=== PATIENT | female | born 1955 | race Asian ===

== ENCOUNTER 2019-03-12 10:42 | Inpatient (IN) | payer MEDICAID, MEDICARE, OTHER ==
[~2019-03-12] VITALS: Ht 149.9 cm; Wt 88.9 kg
[2019-03-12] MEDS ORDERED: HYDRALAZINE HCL25 M2 PO (10:57)
[2019-03-12] MEDS ORDERED: AMLODIPINE BESY10 MG ORAL (10:57)
[2019-03-12] MEDS ORDERED: LISINOPRIL5 MG ORAL (10:57)
[2019-03-12 11:33] VITALS: BP 137/71
[2019-03-12 11:40] LABS: BASOPHILS % (AUTO) 0.4 % (0.0-2.0); EOSINOPHILS % (AUTO) 0.2 % (0.0-3.0); HEMOGLOBIN 14.6 G/DL (12.0-16.0); LYMPHOCYTES % (AUTO) 32.7 % (20.0-45.0); MEAN CORPUSCULAR VOLUME 89 FL (80-99); MONOCYTES % (AUTO) 4.8 % (1.0-10.0); PLATELET COUNT 182 K/UL (150-450); RED BLOOD COUNT 4.96 M/UL (4.20-5.40); RED CELL DISTRIBUTION WIDTH 12.1 % (11.6-14.8); WHITE BLOOD COUNT 9.1 K/UL (4.8-10.8)
[2019-03-12 11:41] LABS: APPEARANCE,URINE CLEAR; BILIRUBIN, URINE NEGATIVE (NEGATIVE); COLOR,URINE PALE YELLOW; GLUCOSE, URINE (UA) NEGATIVE (NEGATIVE); KETONES,URINE NEGATIVE (NEGATIVE); LEUKOCYTE ESTERASE ,URINE NEGATIVE (NEGATIVE); NITRITE,URINE NEGATIVE (NEGATIVE); PH,URINE 5 (4.5-8.0); PROTEIN,URINE NEGATIVE (NEGATIVE); UROBILINOGEN,URINE NORMAL MG/DL (0.0-1.0)
[2019-03-12 11:50] LABS: ANION GAP 8 mmol/L (5-15); BLOOD UREA NITROGEN 21 mg/dL (7-18); CALCIUM 9.3 MG/DL (8.5-10.1); CARBON DIOXIDE 27 MMOL/L (21-32); CHLORIDE 108 MMOL/L (98-107); POTASSIUM 4.6 MMOL/L (3.5-5.1); SODIUM 143 MMOL/L (136-145)
--- NOTE | 2019-03-12 11:50 | NUR ---
ED Nurse Note: pt came in with childcare director from boarding care pt had 3 falls today . feeling weak and dizzy. labs sent ivf up infusing
--- NOTE | 2019-03-12 11:52 | Diagnostic Imaging Report ---
Indication: Shortness of breath Technique: XRAY Chest 1v Comparison: None Findings: Limited exam related to underpenetration, likely secondary to body habitus. Heart size within the upper limits for normal. Mediastinal contours are sharp. There are atherosclerotic ulcer calcifications.. There is no focal consolidation, pneumothorax or pleural effusion. Osseous structures demonstrate no acute abnormality. Impression: No radiographic evidence of acute cardiopulmonary disease.
[2019-03-12 12:03] LABS: ALANINE AMINOTRANSFERASE 17 U/L (12-78); ALBUMIN 3.7 G/DL (3.4-5.0); ALBUMIN/GLOBULIN RATIO 0.9 (1.0-2.7); ALKALINE PHOSPHATASE 74 U/L (46-116); ASPARTATE AMINO TRANSFERASE 19 U/L (15-37); BILIRUBIN,TOTAL 0.4 MG/DL (0.2-1.0); CREATINE KINASE 233 U/L (26-308); PHOSPHORUS 2.7 MG/DL (2.5-4.9)
[2019-03-12 14:00] VITALS: BP 125/87
--- NOTE | 2019-03-12 14:01 | NUR ---
ED Nurse Note: pt given sandwich and juice ok'd to feed pt per ermd. Belongings list done
--- NOTE | 2019-03-12 14:22 | Emergency Room Report ---
History of Present Illness General Chief Complaint: Generalized Weakness Source: Patient Present Illness HPI This patient [facility] a [id number]. She has a history of CVA. She is a hospice program more for her inability to ambulate and inability to perform activities of daily living. She does not have a terminal illness. She does have a history of CVA and hypertension. She had been complaining of leg pain over the past week. Over the past day, her legs have given out about 3 times. She did not actually fall or traumatize her head. She was being assisted by caregivers when these episodes occurred and they were able to hold her without any injury occurring. The patient herself complains of leg pain bilaterally. She denies chest pain or shortness of breath. She denies abdominal pain. She has no other complaints. Allergies: Coded Allergies: No Known Allergies (Unverified , 03/12/19) Patient History Past Medical History: see triage record, HTN, CVA/TIA Social History: Reports: smoking; Denies: alcohol use, drug use Reviewed Nursing Documentation: PMH: Agreed; PSxH: Agreed Nursing Documentation-PMH Past Medical History: No History, Except For Hx Hypertension: Yes Review of Systems All Other Systems: negative except mentioned in HPI Physical Exam Vital Signs Date Time Temp Pulse Resp B/P (MAP) Pulse Ox O2 Delivery O2 Flow Rate FiO2 03/12/19 10:54 80 24 155/87 96 Room Air 03/12/19 11:33 99.1 Sp02 EP Interpretation: reviewed, normal General Appearance: no apparent distress, alert, GCS 15, non-toxic, obese Head: normocephalic, atraumatic Eyes: bilateral eye normal inspection, bilateral eye PERRL ENT: hearing grossly normal, normal pharynx, no angioedema, normal voice Neck: full range of motion, supple/symm/no masses Respiratory: chest non-tender, lungs clear, normal breath sounds, no respiratory distress, no retraction, no accessory muscle use, speaking full sentences Cardiovascular #1: regular rate, rhythm, no edema Gastrointestinal: normal bowel sounds, non tender, soft, non-distended, no guarding, no rebound Rectal: deferred Musculoskeletal: normal range of motion, swelling - BLE edema, tender - TTP BLE Neurologic: alert, oriented x3, responsive, motor strength/tone normal, sensory intact, speech normal Psychiatric: judgement/insight normal, mood/affect normal, no suicidal/ homicidal ideation Skin: warm/dry, well hydrated, other - See RN skin exam Medical Decision Making Diagnostic Impression: Primary Impression: Elevated troponin Additional Impression: Generalized weakness ER Course This patient is found to have an indeterminate troponin. Her legs have been giving out. I am unsure of the etiology of this. She is morbidly obese and has been complaining of pain. Possibly she has osteoarthritis of the knees and is having pain and unable to tolerate the pain with her morbid obesity. She has no obvious focal neurologic deficits. I will admit this patient for further evaluation by cardiology. She is also pending venous ultrasounds of her lower extremities to rule out DVT. These studies will be followed up by the inpatient physician. The patient is admitted for further evaluation and treatment. Laboratory Tests Test 03/12/19 11:15 White Blood Count 9.1 K/UL (4.8-10.8) Red Blood Count 4.96 M/UL (4.20-5.40) Hemoglobin 14.6 G/DL (12.0-16.0) Hematocrit 44.0 % (37.0-47.0) Mean Corpuscular Volume 89 FL (80-99) Mean Corpuscular Hemoglobin 29.5 PG (27.0-31.0) Mean Corpuscular Hemoglobin Concent 33.2 G/DL (32.0-36.0) Red Cell Distribution Width 12.1 % (11.6-14.8) Platelet Count 182 K/UL (150-450) Mean Platelet Volume 9.3 FL (6.5-10.1) Neutrophils (%) (Auto) 62.0 % (45.0-75.0) Lymphocytes (%) (Auto) 32.7 % (20.0-45.0) Monocytes (%) (Auto) 4.8 % (1.0-10.0) Eosinophils (%) (Auto) 0.2 % (0.0-3.0) Basophils (%) (Auto) 0.4 % (0.0-2.0) Prothrombin Time 10.5 SEC (9.30-11.50) Prothrombin Time INR 1.0 (0.9-1.1) PTT 26 SEC (23-33) Urine Color Pale yellow Urine Appearance Clear Urine pH 5 (4.5-8.0) Urine Specific [place] 1.015 (1.005-1.035) Urine Protein Negative (NEGATIVE) Urine Glucose (UA) Negative (NEGATIVE) Urine Ketones Negative (NEGATIVE) Urine Blood Negative (NEGATIVE) Urine Nitrite Negative (NEGATIVE) Urine Bilirubin Negative (NEGATIVE) Urine Urobilinogen Normal MG/DL (0.0-1.0) Urine Leukocyte Esterase Negative (NEGATIVE) Sodium Level 143 MMOL/L (136-145) Potassium Level 4.6 MMOL/L (3.5-5.1) Chloride Level 108 MMOL/L (98-107) H Carbon Dioxide Level 27 MMOL/L (21-32) Anion Gap 8 mmol/L (5-15) Blood Urea Nitrogen 21 mg/dL (7-18) H Creatinine 1.0 MG/DL (0.55-1.30) Estimate Glomerular Filtration Rate 55.8 mL/min (>60) Glucose Level 82 MG/DL (74-106) Lactic Acid Level 1.20 mmol/L (0.4-2.0) Calcium Level 9.3 MG/DL (8.5-10.1) Phosphorus Level 2.7 MG/DL (2.5-4.9) Magnesium Level 1.8 MG/DL (1.8-2.4) Total Bilirubin 0.4 MG/DL (0.2-1.0) Aspartate Amino Transferase (AST) 19 U/L (15-37) Alanine Aminotransferase (ALT) 17 U/L (12-78) Alkaline Phosphatase 74 U/L (46-116) Total Creatine Kinase 233 U/L (26-308) Creatine Kinase MB 5.0 NG/ML (0.0-3.6) H Creatine Kinase MB Relative Index 2.1 Troponin I 0.088 ng/mL (0.000-0.056) Total Protein 7.6 G/DL (6.4-8.2) Albumin 3.7 G/DL (3.4-5.0) Globulin 3.9 g/dL Albumin/Globulin Ratio 0.9 (1.0-2.7) L EKG Diagnostic Results Rate: normal Rhythm: NSR ST Segments: no acute changes Rhythm Strip Diag. Results EP Interpretation: yes Rate: 70's Rhythm: NSR, no PVC's, no ectopy Chest X-Ray Diagnostic Results Chest X-Ray Diagnostic Results : Chest X-Ray Ordered: Yes # of Views/Limited/Complete: 1 View Indication: Other Interpretation: no consolidation, no effusion, no pneumothorax, no acute cardiopulmonary disease Impression: No acute disease Electronically Signed by: Marya Merida DO Last Vital Signs Date Time Temp Pulse Resp B/P (MAP) Pulse Ox O2 Delivery O2 Flow Rate FiO2 03/12/19 14:00 87 25 125/87 100 Room Air 03/12/19 11:33 99.1 Status: improved Disposition: ADMITTED INPATIENT Condition: Serious Referrals: NON PHYSICIAN (PCP) Marya Merida DO Mar 12, 2019 14:22
[2019-03-12] MEDS ORDERED: Ketorolac 30mg Inj IV PRN (15:15)
[2019-03-12] MEDS ORDERED: dilTIAZem HCl 25mg/5ml Inj IV PRN (15:15)
[2019-03-12] MEDS ORDERED: Miralax 17gm pkt ORAL PRN (15:15)
[2019-03-12] MEDS ORDERED: Nitroglycerin Subl 0.4mg tab SL PRN (15:15)
[2019-03-12] MEDS ORDERED: Albuterol/Ipratropium 3ml neb HHN PRN (15:15)
[2019-03-12] MEDS ORDERED: Morphine Sulfate 2mg/ml Inj(IV/IM USE ONLY) IVP PRN (15:15)
[2019-03-12] MEDS ORDERED: Enalaprilat 1.25mg/ml Inj IV PRN (15:15)
[2019-03-12 15:45] VITALS: BP 103/72
--- NOTE | 2019-03-12 15:45 | NUR ---
NURSE NOTES: Received report from MELISSA Reyna from ED. The patient transferred by amara from ED to [facility] safely. The patient denies of acute distress or shortness of breath. The patient's belongings checked with EMLISSA Reyna. The patient's bed is on lowest position, call light in reach, bed brake engaged, side rail x3 up, fall precaution initiated. Fall prevention education given and protocol initiated due to history of fall. Will continue plan of care. Addendum: 03/12/19 at 1623 by Toby Maciel RN quality assurance monitor applied to the patient without discomfort. Will continue to monitor.
[2019-03-12 16:00] VITALS: BP 128/72
--- NOTE | 2019-03-12 16:52 | History & Physical ---
History and Physical History & Physicial Dictated for Int Med-Dr Moran no. [id number]. Tj Mcghee MD Mar 12, 2019 16:52
[2019-03-12] MEDS: HydrALAZINE 25mg tab ORAL SCH (17:42)
--- NOTE | 2019-03-12 19:15 | NUR ---
NURSE NOTES: Received report from Leodan Zaragoza RN and Leodan Maciel RN. Pt is resting in the bed. No respiratory distress in RA. Pt was instructed to call help to use bedpan when she needed. Pt is A&O x3, and verbalized the understanding. Call light and side table are within reach. Bed in the lowest, bed alarm on, and breaks are engaged. Will follow plans of care.
--- NOTE | 2019-03-12 19:42 | NUR ---
HAND-OFF: Report given to MELISSA Baron. Endorsed plan of care.
--- NOTE | 2019-03-12 19:45 | History and Physical Report ---
DATE OF ADMISSION: 03/12/2019 CHIEF COMPLAINT: The patient is a 63-year-old female, who presents with a chief complaint of generalized weakness. HISTORY OF PRESENT ILLNESS: The patient is a resident of [facility]. The patient has had several episodes of her legs being weak over the past couple of days. The patient states this occurred approximately 3 times. The patient did not actually fall. The patient was assisted by caregivers. The patient presented to [facility] emergency room. The patient was admitted with bilateral lower extremity weakness to rule out acute cerebrovascular accident. REVIEW OF SYSTEMS: CONSTITUTIONAL: The patient denies weight loss or weight gain. The patient denies fevers or chills. HEENT: The patient denies ear or throat pain. The patient denies headache. CARDIOVASCULAR: The patient denies palpitations or chest pain. CHEST: The patient denies wheeze or shortness of breath. ABDOMEN: The patient denies nausea, vomiting, diarrhea, or constipation. GENITOURINARY: The patient denies dysuria or increased frequency of urination. NEUROMUSCULAR: The patient complains of bilateral leg weakness as above. The patient denies seizures or generalized weakness. PAST MEDICAL HISTORY: Significant for, 1. Hypertension. 2. Cerebrovascular disease, status post cerebrovascular accident. PAST SURGICAL HISTORY: The patient denies. CURRENT MEDICATIONS: 1. Amlodipine 10 mg one tablet p.o. daily. 2. Hydralazine 25 mg p.o. 3 times daily. 3. Lisinopril 10 mg p.o. daily. ALLERGIES: No known drug allergies. SOCIAL HISTORY: The patient lives in a [facility]. The patient is single. The patient denies tobacco or alcohol use. PHYSICAL EXAMINATION: VITAL SIGNS: Temperature 99.1, respirations 25, pulse 87, and blood pressure 125/87. GENERAL: The patient is a well-developed and well-nourished female in no apparent distress. HEENT: Eyes, pupils are equal and responsive to light and accommodation. Extraocular movements are intact. NECK: Supple without lymphadenopathy. CHEST: Lungs are clear to auscultation bilaterally without wheezes or rales. CARDIOVASCULAR: Regular rhythm and rate. S1 and S2 are normal without murmurs, rubs, or gallops. ABDOMEN: Soft, nontender, and nondistended. Positive bowel sounds. No evidence of hepatosplenomegaly. Currently, no rebound or guarding noted. EXTREMITIES: Negative for clubbing, cyanosis, or edema. RECTAL/GENITAL: Refused. NEUROLOGIC: Cranial nerves II through XII are grossly intact without focal deficits. LABORATORY STUDIES: WBC 9.1, hemoglobin 14.6, hematocrit 44.0, and platelets 182,000. Sodium 143, potassium 4.6, chloride 108, CO2 27, BUN 29, creatinine 1.0, and glucose 82. Troponin is slightly elevated at 0.088. Chest x-ray is reported as no acute disease. ASSESSMENT: This is a 63-year-old female. 1. Weakness in bilateral lower extremities. 2. Hypertension. TREATMENT: 1. Weakness of bilateral lower extremities mainly secondary to cerebrovascular disease. The patient has had cerebrovascular accident in the past. An MRI of the brain is pending. 2. Hypertension. Continue hydralazine, amlodipine, and lisinopril as above. 3. Elevated troponin. Cardiology consultation is obtained with Dr. David Montanez. Tj Mcghee M.D. DR: BERNARD JOB#: [id number] CC:
[2019-03-12 20:00] VITALS: BP 133/83
[2019-03-12] MEDS: Heparin 5000 units/ml inj SUBQ SCH (20:45)
--- NOTE | 2019-03-12 23:23 | NUR ---
NURSE NOTES: Pt was watching TV and fell to sleeping, arousable by voice stimuli. SR in the monitor. No distress noted. Will continue to monitor.
[2019-03-13] VITALS (7 sets, daily range): BP systolic 119–142; BP diastolic 57–78
[2019-03-13 06:28] LABS: HEMOGLOBIN 14.1 G/DL (12.0-16.0); MEAN CORPUSCULAR VOLUME 90 FL (80-99); PLATELET COUNT 148 K/UL (150-450); RED BLOOD COUNT 4.69 M/UL (4.20-5.40); RED CELL DISTRIBUTION WIDTH 12.5 % (11.6-14.8); WHITE BLOOD COUNT 4.6 K/UL (4.8-10.8)
[2019-03-13 06:42] LABS: CHOLESTEROL 149 MG/DL (< 200); HDL CHOLESTEROL 43 MG/DL (40-60); TRIGLYCERIDES 69 MG/DL (30-150)
[2019-03-13 06:46] LABS: INR 1.1 (0.9-1.1)
--- NOTE | 2019-03-13 07:20 | NUR ---
NURSE NOTES: I received the patient awake and resting in bed. Patient did not display any signs of distress or SOB. Bed in the lowest position and call light within reach.
--- NOTE | 2019-03-13 07:29 | NUR ---
HAND-OFF: Report given to Sandrine Berkowitz RN. Troponin is 0.094, trending up from 0.074. Called and left message to Dr. Montanez regarding it. Awaiting call back to the station. Addendum: 03/13/19 at 0731 by MORENO EASTMAN RN Dany is applied and working well.
--- NOTE | 2019-03-13 08:00 | NUR ---
CASE MANAGEMENT:REVIEW 63 YR OLD FEMALE BIBA FROM [facility] CC: GENERALIZED WEAKNESS. ABDOMINAL PAIN SI: ELEVATED TROPONIN 99.1 80 24 155/87 96% ON RA CK MB+5.0 TROPONIN(+) 0.088 AND 0.074 IS: 1L NS BOLUS BLOOD CX CXR : TO TELEMETRY IS: ASA PO QD NORVASC PO QD HEPARIN SQ Q12 HYDRALAZINE PO TID INTERQUAL CRITERIA MET
[2019-03-13] MEDS: HydrALAZINE 25mg tab ORAL SCH ×3 (08:20→18:57)
[2019-03-13] MEDS: Heparin 5000 units/ml inj SUBQ SCH ×2 (08:33→21:00)
[2019-03-13] MEDS ORDERED: Aspirin Baby 81mg ORAL SCH (09:00)
--- NOTE | 2019-03-13 10:00 | NUR ---
*-* INSURANCE *-* ALL CLINICALS AND REVIEWS HAVE BEEN FAXED TO: JAIME MARTINEZ: SUJEY P:[phone] F:[phone] REF# [id number]
--- NOTE | 2019-03-13 12:17 | Consultation ---
History of Present Illness General Date patient seen: Mar 13, 2019 Chief Complaint: Generalized Weakness Present Illness HPI 63 year old female with hx of HTN, Resident of [facility] and care brought in by paramedics with CC of weakness and abdominal pain. Her troponin was positive therefore she was admitted to telemetry. She never had any chest pain. Her only complain is that she can't walk. Among her papers from [facility]isted [facility] there is a paper stating that she has hospice care. I call the [facility] to inquire about her diagnosis. I am waiting for their call back. Allergies: Coded Allergies: No Known Allergies (Unverified , 03/12/19) Medication History Scheduled Amlodipine Besylate* (Amlodipine Besylate*), 10 MG ORAL DAILY, (Reported) Hydralazine HCl (Hydralazine HCl), 25 MG PO TID, (Reported) Lisinopril (Lisinopril*), 10 MG ORAL DAILY, (Reported) Patient History Healthcare decision maker N Resuscitation status Full Code Advanced Directive on File Past Medical/Surgical History Past Medical/Surgical History: (1) History of hypertension Review of Systems All Other Systems: negative except mentioned in HPI Physical Exam General Appearance: WD/WN Lines, tubes and drains: peripheral HEENT: normocephalic, atraumatic Neck: non-tender, normal alignment Respiratory/Chest: chest wall non-tender, lungs clear Cardiovascular/Chest: normal peripheral pulses, regular rhythm Abdomen: normal bowel sounds, non tender Extremities: normal range of motion Skin Exam: normal pigmentation Last 24 Hour Vital Signs Date Time Temp Pulse Resp B/P (MAP) Pulse Ox O2 Delivery O2 Flow Rate FiO2 03/13/19 11:44 98.1 69 18 119/59 (79) 95 03/13/19 08:27 Room Air 03/13/19 08:20 133/68 03/13/19 08:20 90 133/68 03/13/19 08:00 98.0 90 18 133/68 (89) 95 03/13/19 07:29 84 03/13/19 07:10 69 16 Room Air 21 03/13/19 04:00 97.6 70 20 142/73 (96) 98 03/13/19 03:45 63 03/13/19 00:00 97.6 69 20 132/57 (82) 94 03/12/19 23:51 81 03/12/19 21:00 Room Air 03/12/19 20:00 98.3 81 20 133/83 (100) 99 03/12/19 19:04 88 18 Room Air 21 03/12/19 19:02 81 03/12/19 17:42 154/75 03/12/19 16:41 Room Air 03/12/19 16:00 75 03/12/19 16:00 97.8 89 20 128/72 (90) 98 89 03/12/19 15:45 97.8 79 20 103/72 (82) 99 79 03/12/19 14:45 99.1 87 25 125/87 100 Room Air 03/12/19 14:00 87 25 125/87 100 Room Air Intake and Output 03/12/19 03/13/19 19:00 07:00 Intake Total 1640 ml Output Total 700 ml Balance 940 ml Intake Oral 640 ml IV Total 1000 ml Output Urine Total 700 ml # Voids 1 1 Laboratory Tests Test 03/12/19 17:00 03/13/19 05:35 Troponin I 0.074 ng/mL (0.000-0.056) 0.094 ng/mL (0.000-0.056) White Blood Count 4.6 K/UL (4.8-10.8) L Red Blood Count 4.69 M/UL (4.20-5.40) Hemoglobin 14.1 G/DL (12.0-16.0) Hematocrit 42.0 % (37.0-47.0) Mean Corpuscular Volume 90 FL (80-99) Mean Corpuscular Hemoglobin 30.0 PG (27.0-31.0) Mean Corpuscular Hemoglobin Concent 33.5 G/DL (32.0-36.0) Red Cell Distribution Width 12.5 % (11.6-14.8) Platelet Count 148 K/UL (150-450) L Mean Platelet Volume 8.8 FL (6.5-10.1) Neutrophils (%) (Auto) % (45.0-75.0) Lymphocytes (%) (Auto) % (20.0-45.0) Monocytes (%) (Auto) % (1.0-10.0) Eosinophils (%) (Auto) % (0.0-3.0) Basophils (%) (Auto) % (0.0-2.0) Differential Total Cells Counted 100 Neutrophils % (Manual) 34 % (45-75) L Lymphocytes % (Manual) 60 % (20-45) H Monocytes % (Manual) 5 % (1-10) Eosinophils % (Manual) 1 % (0-3) Basophils % (Manual) 0 % (0-2) Band Neutrophils 0 % (0-8) Platelet Estimate Decreased L Platelet Morphology Normal Red Blood Cell Morphology Normal Prothrombin Time 11.3 SEC (9.30-11.50) Prothromb Time International Ratio 1.1 (0.9-1.1) Activated Partial Thromboplast Time 30 SEC (23-33) C-Reactive Protein, Quantitative < 0.4 mg/dL (0.00-0.90) Triglycerides Level 69 MG/DL (30-150) Cholesterol Level 149 MG/DL (< 200) LDL Cholesterol 88 mg/dL (<100) HDL Cholesterol 43 MG/DL (40-60) Cholesterol/HDL Ratio 3.5 (3.3-4.4) Thyroid Stimulating Hormone (TSH) 0.865 uiU/mL (0.358-3.740) Height (Feet): 4 Height (Inches): 11.00 Weight (Pounds): 196 Medications Current Medications Medications (Trade) Dose Ordered Sig/Prashanth Route PRN Reason Start Time Stop Time Status Last Admin Dose Admin Acetaminophen (Tylenol) 650 mg Q4H PRN ORAL FEVER 03/12/19 15:15 04/11/19 15:14 Albuterol/ Ipratropium (Albuterol/ Ipratropium) 3 ml Q4H PRN HHN Shortness of Breath 03/12/19 15:15 03/17/19 15:14 Amlodipine Besylate (Norvasc) 10 mg DAILY ORAL 03/13/19 09:00 04/12/19 08:59 03/13/19 08:20 Aspirin (ASA) 162 mg DAILY ORAL 03/13/19 09:00 04/12/19 08:59 03/13/19 08:20 Diltiazem HCl (Cardizem) 10 mg Q1H PRN IV heart rate more than 120, 03/12/19 15:15 04/11/19 15:14 Enalaprilat (Vasotec) 2.5 mg Q6H PRN IV sbp more than 160 03/12/19 15:15 04/11/19 15:14 Heparin Sodium (Porcine) (Heparin 5000 units/ml) 5,000 units EVERY 12 HOURS SUBQ 03/12/19 21:00 04/11/19 20:59 03/12/19 20:45 Hydralazine HCl (Apresoline) 25 mg TID ORAL 03/12/19 18:00 04/11/19 17:59 03/13/19 08:20 Ketorolac Tromethamine (Toradol 30mg) 30 mg Q6H PRN IV moderate pain ( 4-6) 03/12/19 15:15 03/17/19 15:14 Morphine Sulfate (Morphine Sulfate) 2 mg Q4H PRN IVP severe Pain (Pain Scale 7-10) 03/12/19 15:15 03/19/19 15:14 Nitroglycerin (Ntg) 0.4 mg Q5M PRN SL Prn Chest Pain 03/12/19 15:15 04/11/19 15:14 Ondansetron HCl (Zofran) 4 mg Q6H PRN IVP Nausea & Vomiting 03/12/19 15:15 04/11/19 15:14 Polyethylene Glycol (Miralax) 17 gm DAILYPRN PRN ORAL Constipation 03/12/19 15:15 04/11/19 15:14 Temazepam (Restoril) 15 mg HSPRN PRN ORAL Insomnia 03/12/19 15:15 03/19/19 15:14 Assessment/Plan Problem List: (1) Generalized weakness ICD Codes: R53.1 - Weakness SNOMED: 10093512 (2) History of hypertension ICD Codes: Z86.79 - Personal history of other diseases of the circulatory system SNOMED: 680162732 (3) Elevated troponin ICD Codes: R74.8 - Abnormal levels of other serum enzymes SNOMED: 833989496, 561931127, 238736175 Diagnosis [place] I: pt/ot Neuro evaluation Echo done, was negative for any abnormality. dvt prophylaxis Nicole Paul MD Mar 13, 2019 12:17
--- NOTE | 2019-03-13 13:10 | Cardiology Report ---
APPROVED REPORT EXAM: Two-dimensional and M-mode echocardiogram with Doppler and color Doppler. INDICATION LV FUNCTION M-Mode DIMENSIONS IVSd1.0 (0.7-1.1cm)Left Atrium (MM)4.1 (1.6-4.0cm) LVDd5.3 (3.5-5.6cm)Aortic Root3.1 (2.0-3.7cm) PWd1.1 (0.7-1.1cm)Aortic Cusp Exc.1.7 (1.5-2.0cm) IVSs1.4 cm LVDs3.3 (2.5-4.0cm) PWs1.2 cm Normal left ventricular chamber size, systolic function and wall motion. Left ventricular ejection fraction estimated to be 65-70%. Mild left ventricular hypertrophy by 2-D. Trivial pericardial effusion. Left atrial size at upper limits of normal. Right cardiac chamber sizes are within normal limits. Aortic valve calcification with normal cusp excursion . Mildly thickened mitral valve leaflets with normal excursion. Mild mitral annulus and aortic root calcification. Pulmonic valve not well visualized. IVC at normal size with physiologic collapse . A color flow and spectral Doppler study was performed and revealed: No aortic insufficiency . Normal left ventricular diastolic function . Mild mitral regurgitation. Mild tricuspid regurgitation. Tricuspid systolic velocities suggests peak right ventricular systolic pressure of 36 mmHg,consistent with mild pulmonary hypertension .
--- NOTE | 2019-03-13 13:40 | Cardiology Report ---
APPROVED REPORT EKG Measurement Heart [id number] Normal sinus rhythm Septal infarct, age undetermined Abnormal ECG
--- NOTE | 2019-03-13 14:36 | Cardiac Electrophysiology PN ---
Subjective Subjective [id number] Objective Last 24 Hour Vital Signs Date Time Temp Pulse Resp B/P (MAP) Pulse Ox O2 Delivery O2 Flow Rate FiO2 03/13/19 13:10 132/63 03/13/19 13:09 83 132/63 (86) 03/13/19 11:44 98.1 69 18 119/59 (79) 95 03/13/19 11:42 74 03/13/19 08:27 Room Air 03/13/19 08:20 133/68 03/13/19 08:20 90 133/68 03/13/19 08:00 98.0 90 18 133/68 (89) 95 03/13/19 07:29 84 03/13/19 07:10 69 16 Room Air 21 03/13/19 04:00 97.6 70 20 142/73 (96) 98 03/13/19 03:45 63 03/13/19 00:00 97.6 69 20 132/57 (82) 94 03/12/19 23:51 81 03/12/19 21:00 Room Air 03/12/19 20:00 98.3 81 20 133/83 (100) 99 03/12/19 19:04 88 18 Room Air 21 03/12/19 19:02 81 03/12/19 17:42 154/75 03/12/19 16:41 Room Air 03/12/19 16:00 75 03/12/19 16:00 97.8 89 20 128/72 (90) 98 89 03/12/19 15:45 97.8 79 20 103/72 (82) 99 79 03/12/19 14:45 99.1 87 25 125/87 100 Room Air Intake and Output 03/12/19 03/13/19 19:00 07:00 Intake Total 1640 ml Output Total 700 ml Balance 940 ml Intake Oral 640 ml IV Total 1000 ml Output Urine Total 700 ml # Voids 1 1 Laboratory Tests Test 03/12/19 17:00 03/13/19 05:35 Troponin I 0.074 ng/mL (0.000-0.056) 0.094 ng/mL (0.000-0.056) White Blood Count 4.6 K/UL (4.8-10.8) L Red Blood Count 4.69 M/UL (4.20-5.40) Hemoglobin 14.1 G/DL (12.0-16.0) Hematocrit 42.0 % (37.0-47.0) Mean Corpuscular Volume 90 FL (80-99) Mean Corpuscular Hemoglobin 30.0 PG (27.0-31.0) Mean Corpuscular Hemoglobin Concent 33.5 G/DL (32.0-36.0) Red Cell Distribution Width 12.5 % (11.6-14.8) Platelet Count 148 K/UL (150-450) L Mean Platelet Volume 8.8 FL (6.5-10.1) Neutrophils (%) (Auto) % (45.0-75.0) Lymphocytes (%) (Auto) % (20.0-45.0) Monocytes (%) (Auto) % (1.0-10.0) Eosinophils (%) (Auto) % (0.0-3.0) Basophils (%) (Auto) % (0.0-2.0) Differential Total Cells Counted 100 Neutrophils % (Manual) 34 % (45-75) L Lymphocytes % (Manual) 60 % (20-45) H Monocytes % (Manual) 5 % (1-10) Eosinophils % (Manual) 1 % (0-3) Basophils % (Manual) 0 % (0-2) Band Neutrophils 0 % (0-8) Platelet Estimate Decreased L Platelet Morphology Normal Red Blood Cell Morphology Normal Prothrombin Time 11.3 SEC (9.30-11.50) Prothromb Time International Ratio 1.1 (0.9-1.1) Activated Partial Thromboplast Time 30 SEC (23-33) C-Reactive Protein, Quantitative < 0.4 mg/dL (0.00-0.90) Triglycerides Level 69 MG/DL (30-150) Cholesterol Level 149 MG/DL (< 200) LDL Cholesterol 88 mg/dL (<100) HDL Cholesterol 43 MG/DL (40-60) Cholesterol/HDL Ratio 3.5 (3.3-4.4) Thyroid Stimulating Hormone (TSH) 0.865 uiU/mL (0.358-3.740) Bharathi Dorsey MD Mar 13, 2019 14:36
[2019-03-13] MEDS ORDERED: Nitroglycerin Subl 0.4mg tab SL PRN (15:30)
--- NOTE | 2019-03-13 15:41 | NUR ---
NURSE NOTES: Patient transferred to room 403-1 and report given to faby Vidales charge nurse. Patient's belongings verified. Patiet's IV patent. Bed in the lowest position and call light within reach. Patient in stable condition.
[2019-03-13] MEDS ORDERED: Ketorolac 30mg Inj IV PRN (16:00)
[2019-03-13] MEDS ORDERED: Albuterol/Ipratropium 3ml neb HHN PRN (16:00)
[2019-03-13] MEDS ORDERED: Miralax 17gm pkt ORAL PRN (16:00)
[2019-03-13] MEDS ORDERED: Enalaprilat 1.25mg/ml Inj IV PRN (16:00)
[2019-03-13] MEDS ORDERED: Morphine Sulfate 2mg/ml Inj(IV/IM USE ONLY) IVP PRN (16:00)
[2019-03-13] MEDS ORDERED: dilTIAZem HCl 25mg/5ml Inj IV PRN (16:15)
--- NOTE | 2019-03-13 16:41 | NUR ---
NURSE NOTES: Pt able to verbalize known needs v/s stable. Call light is in reach. Bed is in safe position.
--- NOTE | 2019-03-13 17:00 | NUR ---
NURSE NOTES: Pt assisted to restroom gait unsteady, max assist. BM this shift. Call light in reach . Bed in safe position
--- NOTE | 2019-03-13 17:58 | Internal Med Progress Note ---
Subjective Date of Service: Mar 13, 2019 Physician Name Tj Mcghee Attending Physician Rory Moran MD Current Medications Medications (Trade) Dose Ordered Sig/Prashanth Route PRN Reason Start Time Stop Time Status Last Admin Dose Admin Acetaminophen (Tylenol) 650 mg Q4H PRN ORAL FEVER 03/13/19 15:30 04/11/19 15:29 Albuterol/ Ipratropium (Albuterol/ Ipratropium) 3 ml Q4H PRN HHN Shortness of Breath 03/13/19 16:00 03/17/19 15:59 Amlodipine Besylate (Norvasc) 10 mg DAILY ORAL 03/14/19 09:00 04/12/19 08:59 Aspirin (ASA) 162 mg DAILY ORAL 03/14/19 09:00 04/12/19 08:59 Enalaprilat (Vasotec) 2.5 mg Q6H PRN IV sbp more than 160 03/13/19 16:00 04/11/19 15:59 Heparin Sodium (Porcine) (Heparin 5000 units/ml) 5,000 units EVERY 12 HOURS SUBQ 03/13/19 21:00 04/11/19 20:59 Hydralazine HCl (Apresoline) 25 mg TID ORAL 03/13/19 18:00 04/11/19 17:59 Ketorolac Tromethamine (Toradol 30mg) 30 mg Q6H PRN IV moderate pain ( 4-6) 03/13/19 16:00 03/18/19 15:59 Morphine Sulfate (Morphine Sulfate) 2 mg Q4H PRN IVP severe Pain (Pain Scale 7-10) 03/13/19 16:00 03/19/19 15:59 Nitroglycerin (Ntg) 0.4 mg Q5M PRN SL Prn Chest Pain 03/13/19 15:30 04/11/19 15:14 Ondansetron HCl (Zofran) 4 mg Q6H PRN IVP Nausea & Vomiting 03/13/19 16:00 04/11/19 15:59 Polyethylene Glycol (Miralax) 17 gm DAILYPRN PRN ORAL Constipation 03/13/19 16:00 04/12/19 15:59 Temazepam (Restoril) 15 mg HSPRN PRN ORAL Insomnia 03/14/19 15:15 03/19/19 15:14 Allergies: Coded Allergies: No Known Allergies (Unverified , 03/12/19) ROS Limited/Unobtainable: No Constitutional: Reports: weakness HEENT: Reports: no symptoms Cardiovascular: Reports: no symptoms Respiratory: Reports: no symptoms Gastrointestinal/Abdominal: Reports: no symptoms Genitourinary: Reports: no symptoms Neurologic/Psychiatric: Reports: no symptoms Subjective 63 YO F admitted with generalized weakness. Now elevated troponin. Cover for Int Ben-Dr Moran Objective Last Vital Signs Date Time Temp Pulse Resp B/P (MAP) Pulse Ox O2 Delivery O2 Flow Rate FiO2 03/13/19 16:00 98.2 74 16 133/78 (96) 03/13/19 11:44 95 03/13/19 08:27 Room Air 03/13/19 07:10 21 Laboratory Tests Test 03/13/19 05:35 White Blood Count 4.6 K/UL (4.8-10.8) L Red Blood Count 4.69 M/UL (4.20-5.40) Hemoglobin 14.1 G/DL (12.0-16.0) Hematocrit 42.0 % (37.0-47.0) Mean Corpuscular Volume 90 FL (80-99) Mean Corpuscular Hemoglobin 30.0 PG (27.0-31.0) Mean Corpuscular Hemoglobin Concent 33.5 G/DL (32.0-36.0) Red Cell Distribution Width 12.5 % (11.6-14.8) Platelet Count 148 K/UL (150-450) L Mean Platelet Volume 8.8 FL (6.5-10.1) Neutrophils (%) (Auto) % (45.0-75.0) Lymphocytes (%) (Auto) % (20.0-45.0) Monocytes (%) (Auto) % (1.0-10.0) Eosinophils (%) (Auto) % (0.0-3.0) Basophils (%) (Auto) % (0.0-2.0) Differential Total Cells Counted 100 Neutrophils % (Manual) 34 % (45-75) L Lymphocytes % (Manual) 60 % (20-45) H Monocytes % (Manual) 5 % (1-10) Eosinophils % (Manual) 1 % (0-3) Basophils % (Manual) 0 % (0-2) Band Neutrophils 0 % (0-8) Platelet Estimate Decreased L Platelet Morphology Normal Red Blood Cell Morphology Normal Prothrombin Time 11.3 SEC (9.30-11.50) Prothromb Time International Ratio 1.1 (0.9-1.1) Activated Partial Thromboplast Time 30 SEC (23-33) Troponin I 0.094 ng/mL (0.000-0.056) C-Reactive Protein, Quantitative < 0.4 mg/dL (0.00-0.90) Triglycerides Level 69 MG/DL (30-150) Cholesterol Level 149 MG/DL (< 200) LDL Cholesterol 88 mg/dL (<100) HDL Cholesterol 43 MG/DL (40-60) Cholesterol/HDL Ratio 3.5 (3.3-4.4) Thyroid Stimulating Hormone (TSH) 0.865 uiU/mL (0.358-3.740) Intake and Output 03/12/19 03/13/19 19:00 07:00 Intake Total 1640 ml Output Total 700 ml Balance 940 ml Intake Oral 640 ml IV Total 1000 ml Output Urine Total 700 ml # Voids 1 1 Objective PHYSICAL EXAMINATION: GENERAL: The patient is a well-developed and well-nourished female in no apparent distress. HEENT: Eyes, pupils are equal and responsive to light and accommodation. Extraocular movements are intact. NECK: Supple without lymphadenopathy. CHEST: Lungs are clear to auscultation bilaterally without wheezes or rales. CARDIOVASCULAR: Regular rhythm and rate. S1 and S2 are normal without murmurs, rubs, or gallops. ABDOMEN: Soft, nontender, and nondistended. Positive bowel sounds. No evidence of hepatosplenomegaly. Currently, no rebound or guarding noted. EXTREMITIES: Negative for clubbing, cyanosis, or edema. RECTAL/GENITAL: Refused. NEUROLOGIC: Cranial nerves II through XII are grossly intact without focal deficits. Assessment/Plan Assessment/Plan ASSESSMENT: This is a 63-year-old female. 1. Weakness in bilateral lower extremities. 2. Hypertension. 3. Elevated troponin TREATMENT: 1. Weakness of bilateral lower extremities mainly secondary to cerebrovascular disease. The patient has had cerebrovascular accident in the past. An MRI of the brain is pending. 2. Hypertension. Continue hydralazine, amlodipine, and lisinopril as above. 3. Elevated troponin. Cardiology consultation is obtained with Tj Lawson MD Mar 13, 2019 17:58
--- NOTE | 2019-03-13 19:15 | Consultation ---
DATE OF CONSULTATION: 03/13/2019 CARDIOLOGY CONSULTATION CONSULTING PHYSICIAN: Bharathi Dorsey M.D. REFERRING PHYSICIAN: Rory Moran M.D. REASON FOR CONSULTATION: Management of hypertension and elevated troponin. HISTORY OF PRESENT ILLNESS: The patient is a 63-year-old lady with history of hypertension, resident of a [facility], was brought in by paramedics for weakness and abdominal pain. The patient's initial troponin was positive and the patient was admitted to telemetry for further evaluation. The patient denies any chest pain or shortness of breath or prior myocardial infarction or known coronary artery disease. The patient denies any congestive heart failure history. Per report essentially, the patient is on hospice care. REVIEW OF SYSTEMS: Negative other than what was mentioned in the history of present illness. PAST MEDICAL HISTORY: Hypertension. FAMILY HISTORY: Noncontributory. SOCIAL HISTORY: She lives in a [facility]. Does not smoke or drink alcohol. PHYSICAL EXAMINATION: VITAL SIGNS: Blood pressure 119/59, pulse 69, respirations 18, and temperature 98.1. HEAD AND NECK: Showed no JVD. LUNGS: Clear. CARDIOVASCULAR: Shows regular S1 and S2 with no gallop. ABDOMEN: Soft. EXTREMITIES: No pitting edema. LABORATORY DATA: Her labs show a troponin of 0.088, 0.074, and 0.094. Lactic acid 1.2 and LDL is 88. Sodium 143, potassium is 4.6, BUN of 21, creatinine 1.2, and glucose of 82. White count is 4.7, hemoglobin 14.5, hematocrit of 42, and platelet count 148,000. ASSESSMENT AND PLAN: 1. Hypertension. Blood pressure currently is stable on Norvasc 10 mg daily and hydralazine 25 mg 3 times daily. The patient is on p.r.n. IV Vasotec. 2. Elevated troponin levels are nonspecific. Her preliminary echocardiogram for ejection fraction of 60% to 65%. We will repeat the EKG for further evaluation and management. The patient denies any chest pain. 3. Dizziness. No evidence of carotid stenosis. We will check orthostatic vital signs. Thank you very much, Dr. Moran, for allowing me to participate in the care of this patient. Please do not hesitate to contact me for any questions regarding my evaluation. Bharathi Dorsey M.D. DR: JAMES JOB#: [id number] CC:
--- NOTE | 2019-03-13 19:30 | NUR ---
HAND-OFF: Report given to Scar TORRES.
--- NOTE | 2019-03-13 19:31 | NUR ---
NURSE NOTES: Received patient in no apparent distress. A&OX2. IV site patent and intact. No c/o abdominal pain at this time. Bed in lowest position. Call light within reach. Will continue to monitor.
--- NOTE | 2019-03-13 22:02 | Consultation ---
History of Present Illness General Date patient seen: Mar 13, 2019 Chief Complaint: Generalized Weakness Present Illness HPI 63 year old female with hx of cognitive impairment, HTN, and congestive heart failure who is currently a resident of a [facility] and [facility]. She was BIBA c/o weakness and abdominal pain. Her troponin was positive therefore she was admitted to telemetry. She is alert and pleasant on interview, following commands and antigravity x 4. Allergies: Coded Allergies: No Known Allergies (Unverified , 03/12/19) Medication History Scheduled Amlodipine Besylate* (Amlodipine Besylate*), 10 MG ORAL DAILY, (Reported) Hydralazine HCl (Hydralazine HCl), 25 MG PO TID, (Reported) Lisinopril (Lisinopril*), 10 MG ORAL DAILY, (Reported) Patient History Limited by: medical condition History Provided By: Patient, Medical Record Healthcare decision maker N Resuscitation status Full Code Advanced Directive on File Past Medical/Surgical History Past Medical/Surgical History: (1) History of hypertension (2) Generalized weakness Social History Social History: (1) Lives in assisted living facility Review of Systems Constitutional: Denies: no symptoms, see HPI, chills, sweats, fever, malaise, weakness, other Eye: Denies: no symptoms, see HPI, eye pain, blurred vision, tearing, double vision, nose pain, nose congestion, acuity changes, discharge, other Gastrointestinal: Denies: no symptoms, see HPI, abdominal pain, constipation, diarrhea, nausea, vomiting, melena, hematemesis, other Genitourinary: Denies: no symptoms, see HPI, discharge, dysuria, frequency, hematuria, pain, retention, incontinence, urgency, vag bleed/dc, other Musculoskeletal: Denies: no symptoms, see HPI, back pain, gout, joint pain, joint swelling, muscle pain, muscle stiffness, other Skin: Denies: no symptoms, see HPI, rash, change in color, change in hair/nails , dryness, lesions, other Psychiatric: Denies: no symptoms, see HPI, prior hx, anxiety, depressed feelings, emotional problems, SI, HI, hallucinations, other Neurological: Denies: no symptoms, see HPI, headache, numbness, paresthesia, seizure, tingling, tremors, focal weakness, syncope, dizziness, other Endocrine: Denies: no symptoms, see HPI, excessive sweating, flushing, intolerance to temperature, increased thirst, increased urine, unexplained weight loss, other Hematologic/Lymphatic: Denies: no symptoms, see HPI, anemia, blood clots, easy bleeding, easy bruising, swollen glands, diathesis, other Physical Exam General Appearance: WD/WN, no apparent distress, alert HEENT: normocephalic, atraumatic, mucous membranes moist, PERRL, EOMI, pharynx normal, no JVD Neck: non-tender, normal alignment, supple, normal inspection Respiratory/Chest: normal breath sounds Skin Exam: normal pigmentation, warm/dry, no diaphoresis 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 , other - Cognitive deficit at baseline- alert, oriented and follows all commands. Has child like demeanor, very nice. Last 24 Hour Vital Signs Date Time Temp Pulse Resp B/P (MAP) Pulse Ox O2 Delivery O2 Flow Rate FiO2 03/13/19 18:57 136/72 03/13/19 16:00 98.2 74 16 133/78 (96) 03/13/19 13:10 132/63 03/13/19 13:09 83 132/63 (86) 03/13/19 11:44 98.1 69 18 119/59 (79) 95 03/13/19 11:42 74 03/13/19 08:27 Room Air 03/13/19 08:20 133/68 03/13/19 08:20 90 133/68 03/13/19 08:00 98.0 90 18 133/68 (89) 95 03/13/19 07:29 84 03/13/19 07:10 69 16 Room Air 21 03/13/19 04:00 97.6 70 20 142/73 (96) 98 03/13/19 03:45 63 03/13/19 00:00 97.6 69 20 132/57 (82) 94 03/12/19 23:51 81 Intake and Output 03/12/19 03/13/19 19:00 07:00 Intake Total 1640 ml Output Total 700 ml Balance 940 ml Intake Oral 640 ml IV Total 1000 ml Output Urine Total 700 ml # Voids 1 1 Laboratory Tests Test 03/13/19 05:35 White Blood Count 4.6 K/UL (4.8-10.8) L Red Blood Count 4.69 M/UL (4.20-5.40) Hemoglobin 14.1 G/DL (12.0-16.0) Hematocrit 42.0 % (37.0-47.0) Mean Corpuscular Volume 90 FL (80-99) Mean Corpuscular Hemoglobin 30.0 PG (27.0-31.0) Mean Corpuscular Hemoglobin Concent 33.5 G/DL (32.0-36.0) Red Cell Distribution Width 12.5 % (11.6-14.8) Platelet Count 148 K/UL (150-450) L Mean Platelet Volume 8.8 FL (6.5-10.1) Neutrophils (%) (Auto) % (45.0-75.0) Lymphocytes (%) (Auto) % (20.0-45.0) Monocytes (%) (Auto) % (1.0-10.0) Eosinophils (%) (Auto) % (0.0-3.0) Basophils (%) (Auto) % (0.0-2.0) Differential Total Cells Counted 100 Neutrophils % (Manual) 34 % (45-75) L Lymphocytes % (Manual) 60 % (20-45) H Monocytes % (Manual) 5 % (1-10) Eosinophils % (Manual) 1 % (0-3) Basophils % (Manual) 0 % (0-2) Band Neutrophils 0 % (0-8) Platelet Estimate Decreased L Platelet Morphology Normal Red Blood Cell Morphology Normal Prothrombin Time 11.3 SEC (9.30-11.50) Prothromb Time International Ratio 1.1 (0.9-1.1) Activated Partial Thromboplast Time 30 SEC (23-33) Troponin I 0.094 ng/mL (0.000-0.056) C-Reactive Protein, Quantitative < 0.4 mg/dL (0.00-0.90) Triglycerides Level 69 MG/DL (30-150) Cholesterol Level 149 MG/DL (< 200) LDL Cholesterol 88 mg/dL (<100) HDL Cholesterol 43 MG/DL (40-60) Cholesterol/HDL Ratio 3.5 (3.3-4.4) Thyroid Stimulating Hormone (TSH) 0.865 uiU/mL (0.358-3.740) Height (Feet): 4 Height (Inches): 11.00 Weight (Pounds): 196 Medications Current Medications Medications (Trade) Dose Ordered Sig/Prashanth Route PRN Reason Start Time Stop Time Status Last Admin Dose Admin Acetaminophen (Tylenol) 650 mg Q4H PRN ORAL FEVER 03/13/19 15:30 04/11/19 15:29 Albuterol/ Ipratropium (Albuterol/ Ipratropium) 3 ml Q4H PRN HHN Shortness of Breath 03/13/19 16:00 03/17/19 15:59 Amlodipine Besylate (Norvasc) 10 mg DAILY ORAL 03/14/19 09:00 04/12/19 08:59 Aspirin (ASA) 162 mg DAILY ORAL 03/14/19 09:00 04/12/19 08:59 Enalaprilat (Vasotec) 2.5 mg Q6H PRN IV sbp more than 160 03/13/19 16:00 04/11/19 15:59 Heparin Sodium (Porcine) (Heparin 5000 units/ml) 5,000 units EVERY 12 HOURS SUBQ 03/13/19 21:00 04/11/19 20:59 Hydralazine HCl (Apresoline) 25 mg TID ORAL 03/13/19 18:00 04/11/19 17:59 03/13/19 18:57 Ketorolac Tromethamine (Toradol 30mg) 30 mg Q6H PRN IV moderate pain ( 4-6) 03/13/19 16:00 03/18/19 15:59 Morphine Sulfate (Morphine Sulfate) 2 mg Q4H PRN IVP severe Pain (Pain Scale 7-10) 03/13/19 16:00 03/19/19 15:59 Nitroglycerin (Ntg) 0.4 mg Q5M PRN SL Prn Chest Pain 03/13/19 15:30 04/11/19 15:14 Ondansetron HCl (Zofran) 4 mg Q6H PRN IVP Nausea & Vomiting 03/13/19 16:00 04/11/19 15:59 Polyethylene Glycol (Miralax) 17 gm DAILYPRN PRN ORAL Constipation 03/13/19 16:00 04/12/19 15:59 Temazepam (Restoril) 15 mg HSPRN PRN ORAL Insomnia 03/14/19 15:15 03/19/19 15:14 Assessment/Plan Problem List: (1) Generalized weakness ICD Codes: R53.1 - Weakness SNOMED: 32124818 (2) Elevated troponin ICD Codes: R74.8 - Abnormal levels of other serum enzymes SNOMED: 518425837, 237881371, 180870630 (3) History of hypertension ICD Codes: Z86.79 - Personal history of other diseases of the circulatory system SNOMED: 551214266 (4) Left-sided weakness Assessment & Plan: MRI Brain STAT ordered to rule out Acute CVA ICD Codes: R53.1 - Weakness SNOMED: 119940276 Status: stable, tolerating diet Treatment Plan: Q4 Neuro Obs Na 135-145 Check Lipids, HgBA1c 5.8 Maintain normoglycemia with ISS Start Atorvatstatin 40mg Maintain SBP<140 ASA 81mg Treatment as per cards ECHO Carotid Doppler Bilateral Zabrina Holt N.P. Mar 13, 2019 22:02
[2019-03-14] VITALS: BP 136/68
[2019-03-14 04:00] VITALS: BP 129/83
[2019-03-14 06:15] LABS: BASOPHILS % (AUTO) 0.4 % (0.0-2.0); EOSINOPHILS % (AUTO) 1.1 % (0.0-3.0); HEMATOCRIT 41.6 % (37.0-47.0); HEMOGLOBIN 13.7 G/DL (12.0-16.0); LYMPHOCYTES % (AUTO) 53.5 % (20.0-45.0); MEAN CORPUSCULAR VOLUME 90 FL (80-99); MONOCYTES % (AUTO) 6.6 % (1.0-10.0); NEUTROPHILS % (AUTO) 38.5 % (45.0-75.0); PLATELET COUNT 175 K/UL (150-450); RED BLOOD COUNT 4.64 M/UL (4.20-5.40); RED CELL DISTRIBUTION WIDTH 12.6 % (11.6-14.8); WHITE BLOOD COUNT 5.8 K/UL (4.8-10.8)
[2019-03-14 06:22] LABS: ANION GAP 5 mmol/L (5-15); BLOOD UREA NITROGEN 23 mg/dL (7-18); CARBON DIOXIDE 30 MMOL/L (21-32); CHLORIDE 108 MMOL/L (98-107); CREATININE 1.1 MG/DL (0.55-1.30); POTASSIUM 4.5 MMOL/L (3.5-5.1); SODIUM 143 MMOL/L (136-145)
--- NOTE | 2019-03-14 07:30 | NUR ---
HAND-OFF: Report given to Cl TORRES.
[2019-03-14 08:00] VITALS: BP 133/73
--- NOTE | 2019-03-14 08:02 | NUR ---
NURSE NOTES: received report from MELISSA Sanders. patient in bed. alert. verbally responsive. no respiratory distress noted. no c/o pain at this time. bed in the lowest position . call light within reach. alarm on. LAC IV intact. will continue to monitor
[2019-03-14] MEDS: HydrALAZINE 25mg tab ORAL SCH ×3 (09:24→17:06)
[2019-03-14] MEDS: Aspirin Baby 81mg ORAL SCH (09:24)
[2019-03-14] MEDS: Heparin 5000 units/ml inj SUBQ SCH ×2 (09:26→22:05)
[2019-03-14 12:10] VITALS: BP 125/59
--- NOTE | 2019-03-14 14:16 | Cardiac Electrophysiology PN ---
Assessment/Plan Assessment/Plan 1. Hypertension, stable on Norvasc 10 mg daily and hydralazine 25 mg 3 times daily. 2. Elevated troponin levels are nonspecific. Her echocardiogram for ejection fraction of 60% to 65%. The patient denies any chest pain. Schedule for stress test ion Saturday 3. Dizziness. No evidence of carotid stenosis. We will check orthostatic vital signs. Subjective Subjective Feeling better. No CP or SOB Objective Last 24 Hour Vital Signs Date Time Temp Pulse Resp B/P (MAP) Pulse Ox O2 Delivery O2 Flow Rate FiO2 03/14/19 12:12 125/59 03/14/19 12:10 98.6 66 18 125/59 (81) 98 03/14/19 09:24 133/73 03/14/19 09:24 85 133/73 03/14/19 09:00 Room Air 03/14/19 08:00 97.7 85 18 133/73 (93) 98 03/14/19 06:00 62 69 82 03/14/19 04:00 98.1 71 18 129/83 (98) 98 03/14/19 00:00 98.2 73 18 136/68 (90) 98 03/13/19 23:12 70 20 Room Air 21 03/13/19 22:00 74 81 94 03/13/19 21:00 Room Air 03/13/19 20:00 97.9 80 18 135/64 (87) 98 03/13/19 18:57 136/72 03/13/19 16:00 98.2 74 16 133/78 (96) Intake and Output 03/13/19 03/14/19 19:00 07:00 Intake Total 560 ml Output Total 600 ml Balance -40 ml Intake Oral 560 ml Output Urine Total 600 ml # Voids 4 # Bowel Movements 1 Laboratory Tests Test 03/14/19 05:40 White Blood Count 5.8 K/UL (4.8-10.8) Red Blood Count 4.64 M/UL (4.20-5.40) Hemoglobin 13.7 G/DL (12.0-16.0) Hematocrit 41.6 % (37.0-47.0) Mean Corpuscular Volume 90 FL (80-99) Mean Corpuscular Hemoglobin 29.6 PG (27.0-31.0) Mean Corpuscular Hemoglobin Concent 33.0 G/DL (32.0-36.0) Red Cell Distribution Width 12.6 % (11.6-14.8) Platelet Count 175 K/UL (150-450) Mean Platelet Volume 9.1 FL (6.5-10.1) Neutrophils (%) (Auto) 38.5 % (45.0-75.0) L Lymphocytes (%) (Auto) 53.5 % (20.0-45.0) H Monocytes (%) (Auto) 6.6 % (1.0-10.0) Eosinophils (%) (Auto) 1.1 % (0.0-3.0) Basophils (%) (Auto) 0.4 % (0.0-2.0) Sodium Level 143 MMOL/L (136-145) Potassium Level 4.5 MMOL/L (3.5-5.1) Chloride Level 108 MMOL/L (98-107) H Carbon Dioxide Level 30 MMOL/L (21-32) Anion Gap 5 mmol/L (5-15) Blood Urea Nitrogen 23 mg/dL (7-18) H Creatinine 1.1 MG/DL (0.55-1.30) Estimat Glomerular Filtration Rate 50.0 mL/min (>60) Glucose Level 90 MG/DL (74-106) Calcium Level 9.0 MG/DL (8.5-10.1) Troponin I 0.071 ng/mL (0.000-0.056) Microbiology Date/Time Source Procedure Growth Status 03/12/19 11:26 Blood Blood Culture - Preliminary NO GROWTH AFTER 24 HOURS Resulted 03/12/19 11:15 Blood Blood Culture - Preliminary NO GROWTH AFTER 24 HOURS Resulted 03/12/19 14:50 Nasal Nares MRSA Culture - Final NO METHICILLIN RESISTANT STAPH AUREUS... Complete 03/12/19 14:50 Rectum VRE Culture - Final NO VANCOMYCIN RESISTANT ENTEROCOCCUS ... Resulted 03/12/19 14:50 Rectum Pending Resulted Objective HEAD AND NECK: Showed no JVD. LUNGS: Clear. CARDIOVASCULAR: Shows regular S1 and S2 with no gallop. ABDOMEN: Soft. EXTREMITIES: No pitting edema. Bharathi Dorsey MD Mar 14, 2019 14:16
--- NOTE | 2019-03-14 14:28 | NUR ---
PT Note PT carlene completed, treatment initiated. Patient was able to take small steps to/from the commode. Patient has a shuffling gait pattern. Patient needs PT services to increase muscle strength and balance to improve her functional mobility and gait. Addendum: 03/14/19 at 1429 by KIARA CHOE PT Amended: Links added.
[2019-03-14] MEDS ORDERED: Lexiscan 0.4mg/5ml syringe IV PRN (14:30)
--- NOTE | 2019-03-14 14:35 | Internal Med Progress Note ---
Subjective Date of Service: Mar 14, 2019 Physician Name Tj Mcghee Attending Physician Rory Moran MD Current Medications Medications (Trade) Dose Ordered Sig/Prashanth Route PRN Reason Start Time Stop Time Status Last Admin Dose Admin Acetaminophen (Tylenol) 650 mg Q4H PRN ORAL FEVER 03/13/19 15:30 04/11/19 15:29 Albuterol/ Ipratropium (Albuterol/ Ipratropium) 3 ml Q4H PRN HHN Shortness of Breath 03/13/19 16:00 03/17/19 15:59 Amlodipine Besylate (Norvasc) 10 mg DAILY ORAL 03/14/19 09:00 04/12/19 08:59 03/14/19 09:24 Aspirin (ASA) 162 mg DAILY ORAL 03/14/19 09:00 04/12/19 08:59 03/14/19 09:24 Enalaprilat (Vasotec) 2.5 mg Q6H PRN IV sbp more than 160 03/13/19 16:00 04/11/19 15:59 Heparin Sodium (Porcine) (Heparin 5000 units/ml) 5,000 units EVERY 12 HOURS SUBQ 03/13/19 21:00 04/11/19 20:59 03/14/19 09:26 Hydralazine HCl (Apresoline) 25 mg TID ORAL 03/13/19 18:00 04/11/19 17:59 03/14/19 12:12 Ketorolac Tromethamine (Toradol 30mg) 30 mg Q6H PRN IV moderate pain ( 4-6) 03/13/19 16:00 03/18/19 15:59 Morphine Sulfate (Morphine Sulfate) 2 mg Q4H PRN IVP severe Pain (Pain Scale 7-10) 03/13/19 16:00 03/19/19 15:59 Nitroglycerin (Ntg) 0.4 mg Q5M PRN SL Prn Chest Pain 03/13/19 15:30 04/11/19 15:14 Ondansetron HCl (Zofran) 4 mg Q6H PRN IVP Nausea & Vomiting 03/13/19 16:00 04/11/19 15:59 Polyethylene Glycol (Miralax) 17 gm DAILYPRN PRN ORAL Constipation 03/13/19 16:00 04/12/19 15:59 Regadenoson (Lexiscan) 0.4 mg ONCE PRN IV STRESS TEST 03/14/19 14:30 03/16/19 23:59 Temazepam (Restoril) 15 mg HSPRN PRN ORAL Insomnia 03/14/19 15:15 03/19/19 15:14 Allergies: Coded Allergies: No Known Allergies (Unverified , 03/12/19) ROS Limited/Unobtainable: No Constitutional: Reports: weakness HEENT: Reports: no symptoms Cardiovascular: Reports: no symptoms Respiratory: Reports: no symptoms Gastrointestinal/Abdominal: Reports: no symptoms Genitourinary: Reports: no symptoms Neurologic/Psychiatric: Reports: no symptoms Subjective 63 YO F admitted with generalized weakness. Now elevated troponin. Cover for Int Ben-Dr Moran Objective Last Vital Signs Date Time Temp Pulse Resp B/P (MAP) Pulse Ox O2 Delivery O2 Flow Rate FiO2 03/14/19 12:12 125/59 03/14/19 12:10 98.6 66 18 98 03/14/19 09:00 Room Air 03/13/19 23:12 21 Laboratory Tests Test 03/14/19 05:40 White Blood Count 5.8 K/UL (4.8-10.8) Red Blood Count 4.64 M/UL (4.20-5.40) Hemoglobin 13.7 G/DL (12.0-16.0) Hematocrit 41.6 % (37.0-47.0) Mean Corpuscular Volume 90 FL (80-99) Mean Corpuscular Hemoglobin 29.6 PG (27.0-31.0) Mean Corpuscular Hemoglobin Concent 33.0 G/DL (32.0-36.0) Red Cell Distribution Width 12.6 % (11.6-14.8) Platelet Count 175 K/UL (150-450) Mean Platelet Volume 9.1 FL (6.5-10.1) Neutrophils (%) (Auto) 38.5 % (45.0-75.0) L Lymphocytes (%) (Auto) 53.5 % (20.0-45.0) H Monocytes (%) (Auto) 6.6 % (1.0-10.0) Eosinophils (%) (Auto) 1.1 % (0.0-3.0) Basophils (%) (Auto) 0.4 % (0.0-2.0) Sodium Level 143 MMOL/L (136-145) Potassium Level 4.5 MMOL/L (3.5-5.1) Chloride Level 108 MMOL/L (98-107) H Carbon Dioxide Level 30 MMOL/L (21-32) Anion Gap 5 mmol/L (5-15) Blood Urea Nitrogen 23 mg/dL (7-18) H Creatinine 1.1 MG/DL (0.55-1.30) Estimat Glomerular Filtration Rate 50.0 mL/min (>60) Glucose Level 90 MG/DL (74-106) Calcium Level 9.0 MG/DL (8.5-10.1) Troponin I 0.071 ng/mL (0.000-0.056) Microbiology Date/Time Source Procedure Growth Status 03/12/19 11:26 Blood Blood Culture - Preliminary NO GROWTH AFTER 24 HOURS Resulted 03/12/19 11:15 Blood Blood Culture - Preliminary NO GROWTH AFTER 24 HOURS Resulted 03/12/19 14:50 Nasal Nares MRSA Culture - Final NO METHICILLIN RESISTANT STAPH AUREUS... Complete 03/12/19 14:50 Rectum VRE Culture - Final NO VANCOMYCIN RESISTANT ENTEROCOCCUS ... Resulted 03/12/19 14:50 Rectum Pending Resulted Intake and Output 03/13/19 03/14/19 19:00 07:00 Intake Total 560 ml Output Total 600 ml Balance -40 ml Intake Oral 560 ml Output Urine Total 600 ml # Voids 4 # Bowel Movements 1 Objective PHYSICAL EXAMINATION: GENERAL: The patient is a well-developed and well-nourished female in no apparent distress. HEENT: Eyes, pupils are equal and responsive to light and accommodation. Extraocular movements are intact. NECK: Supple without lymphadenopathy. CHEST: Lungs are clear to auscultation bilaterally without wheezes or rales. CARDIOVASCULAR: Regular rhythm and rate. S1 and S2 are normal without murmurs, rubs, or gallops. ABDOMEN: Soft, nontender, and nondistended. Positive bowel sounds. No evidence of hepatosplenomegaly. Currently, no rebound or guarding noted. EXTREMITIES: Negative for clubbing, cyanosis, or edema. RECTAL/GENITAL: Refused. NEUROLOGIC: Cranial nerves II through XII are grossly intact without focal deficits. Assessment/Plan Assessment/Plan ASSESSMENT: This is a 63-year-old female. 1. Weakness in bilateral lower extremities. 2. Hypertension. 3. Elevated troponin TREATMENT: 1. Weakness of bilateral lower extremities mainly secondary to cerebrovascular disease. The patient has had cerebrovascular accident in the past. An MRI of the brain is pending. See neurology note. 2. Hypertension. Continue hydralazine, amlodipine, and lisinopril as above. 3. Elevated troponin. Cardiology consultation is obtained with Tj Lawson MD Mar 14, 2019 14:35
[2019-03-14 16:00] VITALS: BP 135/71
--- NOTE | 2019-03-14 16:16 | Neurology Progress Note ---
Interim History Interim History ROS Limited/Unobtainable: No Events: MRI performed but RESULTS UNAVAILABLE Objective Physical Exam Last Vital Signs Date Time Temp Pulse Resp B/P (MAP) Pulse Ox O2 Delivery O2 Flow Rate FiO2 03/14/19 14:00 73 73 80 03/14/19 12:12 125/59 03/14/19 12:10 98.6 18 98 03/14/19 09:00 Room Air 03/13/19 23:12 21 Laboratory Tests Test 03/14/19 05:40 White Blood Count 5.8 K/UL (4.8-10.8) Red Blood Count 4.64 M/UL (4.20-5.40) Hemoglobin 13.7 G/DL (12.0-16.0) Hematocrit 41.6 % (37.0-47.0) Mean Corpuscular Volume 90 FL (80-99) Mean Corpuscular Hemoglobin 29.6 PG (27.0-31.0) Mean Corpuscular Hemoglobin Concent 33.0 G/DL (32.0-36.0) Red Cell Distribution Width 12.6 % (11.6-14.8) Platelet Count 175 K/UL (150-450) Mean Platelet Volume 9.1 FL (6.5-10.1) Neutrophils (%) (Auto) 38.5 % (45.0-75.0) L Lymphocytes (%) (Auto) 53.5 % (20.0-45.0) H Monocytes (%) (Auto) 6.6 % (1.0-10.0) Eosinophils (%) (Auto) 1.1 % (0.0-3.0) Basophils (%) (Auto) 0.4 % (0.0-2.0) Sodium Level 143 MMOL/L (136-145) Potassium Level 4.5 MMOL/L (3.5-5.1) Chloride Level 108 MMOL/L (98-107) H Carbon Dioxide Level 30 MMOL/L (21-32) Anion Gap 5 mmol/L (5-15) Blood Urea Nitrogen 23 mg/dL (7-18) H Creatinine 1.1 MG/DL (0.55-1.30) Estimat Glomerular Filtration Rate 50.0 mL/min (>60) Glucose Level 90 MG/DL (74-106) Calcium Level 9.0 MG/DL (8.5-10.1) Troponin I 0.071 ng/mL (0.000-0.056) Zabrina Holt N.P. Mar 14, 2019 16:16
--- NOTE | 2019-03-14 19:06 | NUR ---
CASE MANAGEMENT: REVIEW SI: ABD PAIN . ELEVATED TROPONIN T 98.6 HR 73 RR 18 BP 125/59 SAT 96% ROOM AIR TROPONIN I 0.071 IS: LEXISCAN IV X1 ASA PO QD HEPARIN SQ Q12HR VASOTEC IV PRN PT EVAL MED/SURG STATUS DCP: PATIENT IS FROM HOME PLAN: MRI / BRAIN PENDING
--- NOTE | 2019-03-14 19:44 | NUR ---
HAND-OFF: Report given to coty torres RN.
[2019-03-14 20:00] VITALS: BP 121/53
--- NOTE | 2019-03-14 20:00 | NUR ---
NURSE NOTES: PT IN BED. ON RA, NO SOB, NO ACUTE DISTRESS, DENIES PAIN. LAC IV INTACT, PATENT. IN STABLE CONDITION. BED IN LOWEST POSITION, LOCKED, ALARMS ON. CALL LIGHT IN REACH.
[2019-03-15] VITALS: BP 131/69
[2019-03-15 04:00] VITALS: BP 132/69
[2019-03-15 07:06] LABS: BASOPHILS % (AUTO) 0.4 % (0.0-2.0); EOSINOPHILS % (AUTO) 1.3 % (0.0-3.0); HEMATOCRIT 40.6 % (37.0-47.0); HEMOGLOBIN 13.7 G/DL (12.0-16.0); MEAN CORPUSCULAR VOLUME 90 FL (80-99); MONOCYTES % (AUTO) 7.4 % (1.0-10.0); NEUTROPHILS % (AUTO) 40.9 % (45.0-75.0); PLATELET COUNT 164 K/UL (150-450); RED BLOOD COUNT 4.52 M/UL (4.20-5.40); RED CELL DISTRIBUTION WIDTH 12.3 % (11.6-14.8); WHITE BLOOD COUNT 5.7 K/UL (4.8-10.8)
--- NOTE | 2019-03-15 07:10 | NUR ---
HAND-OFF: Report given to Cl TORRES.
--- NOTE | 2019-03-15 07:12 | NUR ---
NURSE NOTES: received report from Cristy Godoy RN. patient in bed. AOx2-3, verbally responsive. no respiratory distress noted. no c/o pain at this time. IV on LAC 20 heplock intact. bed in the lowest position. call light within reach. will continue to monitor.
[2019-03-15 08:00] VITALS: BP 145/67
[2019-03-15 08:22] LABS: ANION GAP 8 mmol/L (5-15); BLOOD UREA NITROGEN 26 mg/dL (7-18); CALCIUM 8.9 MG/DL (8.5-10.1); CARBON DIOXIDE 27 MMOL/L (21-32); CHLORIDE 107 MMOL/L (98-107); POTASSIUM 4.6 MMOL/L (3.5-5.1); SODIUM 142 MMOL/L (136-145)
[2019-03-15] MEDS: HydrALAZINE 25mg tab ORAL SCH ×3 (08:24→17:18)
[2019-03-15] MEDS: Aspirin Baby 81mg ORAL SCH (08:24)
[2019-03-15] MEDS: Heparin 5000 units/ml inj SUBQ SCH ×2 (08:27→20:59)
[2019-03-15 12:00] VITALS: BP 158/72
--- NOTE | 2019-03-15 13:32 | Internal Med Progress Note ---
Subjective Date of Service: Mar 15, 2019 Physician Name Tj Mcghee Attending Physician Rory Moran MD Current Medications Medications (Trade) Dose Ordered Sig/Prashanth Route PRN Reason Start Time Stop Time Status Last Admin Dose Admin Acetaminophen (Tylenol) 650 mg Q4H PRN ORAL FEVER 03/13/19 15:30 04/11/19 15:29 Albuterol/ Ipratropium (Albuterol/ Ipratropium) 3 ml Q4H PRN HHN Shortness of Breath 03/13/19 16:00 03/17/19 15:59 Amlodipine Besylate (Norvasc) 10 mg DAILY ORAL 03/14/19 09:00 04/12/19 08:59 03/15/19 08:24 Aspirin (ASA) 162 mg DAILY ORAL 03/14/19 09:00 04/12/19 08:59 03/15/19 08:24 Enalaprilat (Vasotec) 2.5 mg Q6H PRN IV sbp more than 160 03/13/19 16:00 04/11/19 15:59 Heparin Sodium (Porcine) (Heparin 5000 units/ml) 5,000 units EVERY 12 HOURS SUBQ 03/13/19 21:00 04/11/19 20:59 03/15/19 08:27 Hydralazine HCl (Apresoline) 25 mg TID ORAL 03/13/19 18:00 04/11/19 17:59 03/15/19 12:26 Ketorolac Tromethamine (Toradol 30mg) 30 mg Q6H PRN IV moderate pain ( 4-6) 03/13/19 16:00 03/18/19 15:59 Morphine Sulfate (Morphine Sulfate) 2 mg Q4H PRN IVP severe Pain (Pain Scale 7-10) 03/13/19 16:00 03/19/19 15:59 Nitroglycerin (Ntg) 0.4 mg Q5M PRN SL Prn Chest Pain 03/13/19 15:30 04/11/19 15:14 Ondansetron HCl (Zofran) 4 mg Q6H PRN IVP Nausea & Vomiting 03/13/19 16:00 04/11/19 15:59 Polyethylene Glycol (Miralax) 17 gm DAILYPRN PRN ORAL Constipation 03/13/19 16:00 04/12/19 15:59 Regadenoson (Lexiscan) 0.4 mg ONCE PRN IV STRESS TEST 03/14/19 14:30 03/16/19 23:59 Temazepam (Restoril) 15 mg HSPRN PRN ORAL Insomnia 03/14/19 15:15 03/19/19 15:14 Allergies: Coded Allergies: No Known Allergies (Unverified , 03/12/19) ROS Limited/Unobtainable: No Constitutional: Reports: weakness HEENT: Reports: no symptoms Cardiovascular: Reports: no symptoms Respiratory: Reports: no symptoms Gastrointestinal/Abdominal: Reports: no symptoms Genitourinary: Reports: no symptoms Neurologic/Psychiatric: Reports: no symptoms Subjective 63 YO F admitted with generalized weakness. Now elevated troponin. Cover for Int Ben-Dr Moran Objective Last Vital Signs Date Time Temp Pulse Resp B/P (MAP) Pulse Ox O2 Delivery O2 Flow Rate FiO2 03/15/19 12:26 158/72 03/15/19 12:00 97.7 74 20 97 03/15/19 09:00 Room Air 03/15/19 07:11 21 Laboratory Tests Test 03/15/19 05:45 White Blood Count 5.7 K/UL (4.8-10.8) Red Blood Count 4.52 M/UL (4.20-5.40) Hemoglobin 13.7 G/DL (12.0-16.0) Hematocrit 40.6 % (37.0-47.0) Mean Corpuscular Volume 90 FL (80-99) Mean Corpuscular Hemoglobin 30.3 PG (27.0-31.0) Mean Corpuscular Hemoglobin Concent 33.7 G/DL (32.0-36.0) Red Cell Distribution Width 12.3 % (11.6-14.8) Platelet Count 164 K/UL (150-450) Mean Platelet Volume 8.6 FL (6.5-10.1) Neutrophils (%) (Auto) 40.9 % (45.0-75.0) L Lymphocytes (%) (Auto) 50.0 % (20.0-45.0) H Monocytes (%) (Auto) 7.4 % (1.0-10.0) Eosinophils (%) (Auto) 1.3 % (0.0-3.0) Basophils (%) (Auto) 0.4 % (0.0-2.0) Sodium Level 142 MMOL/L (136-145) Potassium Level 4.6 MMOL/L (3.5-5.1) Chloride Level 107 MMOL/L (98-107) Carbon Dioxide Level 27 MMOL/L (21-32) Anion Gap 8 mmol/L (5-15) Blood Urea Nitrogen 26 mg/dL (7-18) H Creatinine 1.0 MG/DL (0.55-1.30) Estimat Glomerular Filtration Rate 55.8 mL/min (>60) Glucose Level 86 MG/DL (74-106) Calcium Level 8.9 MG/DL (8.5-10.1) Microbiology Date/Time Source Procedure Growth Status 03/12/19 14:50 Nasal Nares MRSA Culture - Final NO METHICILLIN RESISTANT STAPH AUREUS... Complete 03/12/19 14:50 Rectum VRE Culture - Final NO VANCOMYCIN RESISTANT ENTEROCOCCUS ... Complete 03/12/19 14:50 Rectum - Final NO CARBAPENEM-RESISTANT ENTEROBACTERI... Complete Intake and Output 03/14/19 03/15/19 19:00 07:00 Intake Total 960 ml Balance 960 ml Intake Oral 360 ml Other 600 ml # Voids 2 Objective PHYSICAL EXAMINATION: GENERAL: The patient is a well-developed and well-nourished female in no apparent distress. HEENT: Eyes, pupils are equal and responsive to light and accommodation. Extraocular movements are intact. NECK: Supple without lymphadenopathy. CHEST: Lungs are clear to auscultation bilaterally without wheezes or rales. CARDIOVASCULAR: Regular rhythm and rate. S1 and S2 are normal without murmurs, rubs, or gallops. ABDOMEN: Soft, nontender, and nondistended. Positive bowel sounds. No evidence of hepatosplenomegaly. Currently, no rebound or guarding noted. EXTREMITIES: Negative for clubbing, cyanosis, or edema. RECTAL/GENITAL: Refused. NEUROLOGIC: Cranial nerves II through XII are grossly intact without focal deficits. Assessment/Plan Assessment/Plan ASSESSMENT: This is a 63-year-old female. 1. Weakness in bilateral lower extremities. 2. Hypertension. 3. Elevated troponin TREATMENT: 1. Weakness of bilateral lower extremities mainly secondary to cerebrovascular disease. The patient has had cerebrovascular accident in the past. An MRI of the brain is pending. See neurology note. 2. Hypertension. Continue hydralazine, amlodipine, and lisinopril as above. 3. Elevated troponin. Cardiology consultation is obtained with Tj Lawson MD Mar 15, 2019 13:32
--- NOTE | 2019-03-15 14:06 | Cardiac Electrophysiology PN ---
Assessment/Plan Assessment/Plan 1. Hypertension, on Norvasc 10 mg daily and hydralazine 25 mg 3 times daily. 2. Elevated troponin levels are nonspecific. Echocardiogram EF 60% to 65%. The patient denies any chest pain. Scheduled for stress test on Saturday 3. Dizziness. No evidence of carotid stenosis. Subjective Subjective No CP or SOB. Scheduled for stress test tomorrow Objective Last 24 Hour Vital Signs Date Time Temp Pulse Resp B/P (MAP) Pulse Ox O2 Delivery O2 Flow Rate FiO2 03/15/19 12:26 158/72 03/15/19 12:00 97.7 74 20 158/72 (100) 97 03/15/19 09:00 Room Air 03/15/19 08:24 145/67 03/15/19 08:24 72 145/67 03/15/19 08:00 97.3 72 22 145/67 (93) 100 03/15/19 07:11 72 16 Room Air 21 03/15/19 06:00 65 77 78 03/15/19 04:00 97.8 75 18 132/69 (90) 97 03/15/19 00:00 97.7 75 17 131/69 (89) 98 03/14/19 22:00 69 70 77 03/14/19 21:45 78 18 Room Air 21 03/14/19 21:00 Room Air 03/14/19 20:00 97.7 79 18 121/53 (75) 97 03/14/19 17:06 135/71 03/14/19 16:00 98.6 78 18 135/71 (92) 96 Intake and Output 03/14/19 03/15/19 19:00 07:00 Intake Total 960 ml Balance 960 ml Intake Oral 360 ml Other 600 ml # Voids 2 Laboratory Tests Test 03/15/19 05:45 White Blood Count 5.7 K/UL (4.8-10.8) Red Blood Count 4.52 M/UL (4.20-5.40) Hemoglobin 13.7 G/DL (12.0-16.0) Hematocrit 40.6 % (37.0-47.0) Mean Corpuscular Volume 90 FL (80-99) Mean Corpuscular Hemoglobin 30.3 PG (27.0-31.0) Mean Corpuscular Hemoglobin Concent 33.7 G/DL (32.0-36.0) Red Cell Distribution Width 12.3 % (11.6-14.8) Platelet Count 164 K/UL (150-450) Mean Platelet Volume 8.6 FL (6.5-10.1) Neutrophils (%) (Auto) 40.9 % (45.0-75.0) L Lymphocytes (%) (Auto) 50.0 % (20.0-45.0) H Monocytes (%) (Auto) 7.4 % (1.0-10.0) Eosinophils (%) (Auto) 1.3 % (0.0-3.0) Basophils (%) (Auto) 0.4 % (0.0-2.0) Sodium Level 142 MMOL/L (136-145) Potassium Level 4.6 MMOL/L (3.5-5.1) Chloride Level 107 MMOL/L (98-107) Carbon Dioxide Level 27 MMOL/L (21-32) Anion Gap 8 mmol/L (5-15) Blood Urea Nitrogen 26 mg/dL (7-18) H Creatinine 1.0 MG/DL (0.55-1.30) Estimat Glomerular Filtration Rate 55.8 mL/min (>60) Glucose Level 86 MG/DL (74-106) Calcium Level 8.9 MG/DL (8.5-10.1) Microbiology Date/Time Source Procedure Growth Status 03/12/19 14:50 Nasal Nares MRSA Culture - Final NO METHICILLIN RESISTANT STAPH AUREUS... Complete 03/12/19 14:50 Rectum VRE Culture - Final NO VANCOMYCIN RESISTANT ENTEROCOCCUS ... Complete 03/12/19 14:50 Rectum - Final NO CARBAPENEM-RESISTANT ENTEROBACTERI... Complete Objective HEAD AND NECK: Showed no JVD. LUNGS: Clear. CARDIOVASCULAR: Shows regular S1 and S2 with no gallop. ABDOMEN: Soft. EXTREMITIES: No pitting edema. Bharathi Dorsey MD Mar 15, 2019 14:06
[2019-03-15 16:00] VITALS: BP 139/74
--- NOTE | 2019-03-15 17:54 | Neurology Progress Note ---
Interim History Interim History ROS Limited/Unobtainable: No Objective Physical Exam Last Vital Signs Date Time Temp Pulse Resp B/P (MAP) Pulse Ox O2 Delivery O2 Flow Rate FiO2 03/15/19 17:18 139/74 03/15/19 16:00 97.9 72 20 97 03/15/19 09:00 Room Air 03/15/19 07:11 21 Laboratory Tests Test 03/15/19 05:45 White Blood Count 5.7 K/UL (4.8-10.8) Red Blood Count 4.52 M/UL (4.20-5.40) Hemoglobin 13.7 G/DL (12.0-16.0) Hematocrit 40.6 % (37.0-47.0) Mean Corpuscular Volume 90 FL (80-99) Mean Corpuscular Hemoglobin 30.3 PG (27.0-31.0) Mean Corpuscular Hemoglobin Concent 33.7 G/DL (32.0-36.0) Red Cell Distribution Width 12.3 % (11.6-14.8) Platelet Count 164 K/UL (150-450) Mean Platelet Volume 8.6 FL (6.5-10.1) Neutrophils (%) (Auto) 40.9 % (45.0-75.0) L Lymphocytes (%) (Auto) 50.0 % (20.0-45.0) H Monocytes (%) (Auto) 7.4 % (1.0-10.0) Eosinophils (%) (Auto) 1.3 % (0.0-3.0) Basophils (%) (Auto) 0.4 % (0.0-2.0) Sodium Level 142 MMOL/L (136-145) Potassium Level 4.6 MMOL/L (3.5-5.1) Chloride Level 107 MMOL/L (98-107) Carbon Dioxide Level 27 MMOL/L (21-32) Anion Gap 8 mmol/L (5-15) Blood Urea Nitrogen 26 mg/dL (7-18) H Creatinine 1.0 MG/DL (0.55-1.30) Estimat Glomerular Filtration Rate 55.8 mL/min (>60) Glucose Level 86 MG/DL (74-106) Calcium Level 8.9 MG/DL (8.5-10.1) Impression/Recommendations Problems: (1) Generalized weakness (2) Elevated troponin (3) History of hypertension (4) Left-sided weakness Assessment & Plan: MRI Brain STAT ordered to rule out Acute CVA Status: stable, tolerating diet Zabrina Holt N.P. Mar 15, 2019 17:54
[2019-03-15 18:12] LABS: CHOLESTEROL 148 MG/DL (< 200); HDL CHOLESTEROL 45 MG/DL (40-60); TRIGLYCERIDES 68 MG/DL (30-150)
--- NOTE | 2019-03-15 19:06 | NUR ---
HAND-OFF: Report given to Cristy Godoy RN.
[2019-03-15 20:00] VITALS: BP 121/62
[2019-03-15] MEDS: Atorvastatin 20mg tab ORAL SCH (20:57)
[2019-03-16] VITALS: BP 126/66
[2019-03-16 04:00] VITALS: BP 132/75
--- NOTE | 2019-03-16 07:15 | NUR ---
HAND-OFF: Report given to Gillian TORRES.
--- NOTE | 2019-03-16 07:24 | NUR ---
NURSE NOTES: Received report from MELISSA Potts. Rounding done with outgoing nurse. Patient is Czech speaking and a/o x 2-3. No respiratory distress noted. Denies any pain at this time. Patient keep NPO for procedure. Patient verbalized understanding. Bed in lowest position, call light within reach. Will continue to monitor.
--- NOTE | 2019-03-16 07:30 | NUR ---
NURSE NOTES: Received patient from MELISSA French. Patient is in bed, resting. Alert and oriented x3. Patient is on room air, no s/s of distress. Denies pain at the moment. Bed is locked at the lowest position, call lights within reach, side rails up x2. Will continue to monitor. Addendum: 03/17/19 at 0652 by Dayan Nelson RN Wrong time entry.
[2019-03-16 08:00] VITALS: BP 133/68
[2019-03-16] MEDS: HydrALAZINE 25mg tab ORAL SCH ×3 (10:12→17:34)
[2019-03-16] MEDS: Aspirin Baby 81mg ORAL SCH (10:12)
[2019-03-16] MEDS: Heparin 5000 units/ml inj SUBQ SCH ×2 (10:13→20:23)
[2019-03-16 12:00] VITALS: BP 130/72
[2019-03-16] MEDS ORDERED: ASPIRIN81 MG ORAL (12:07)
[2019-03-16] MEDS ORDERED: LIPITOR20 MG ORAL (12:07)
--- NOTE | 2019-03-16 12:08 | Pulmonology Progress Note ---
Assessment/Plan Problems: (1) Generalized weakness (2) History of hypertension (3) Elevated troponin Assessment/Plan back to normal eating well asymptomatic no complains dc back to assisted living where she was on hospice. Subjective ROS Limited/Unobtainable: No Constitutional: Reports: no symptoms HEENT: Repors: no symptoms Respiratory: Reports: no symptoms Allergies: Coded Allergies: No Known Allergies (Unverified , 03/12/19) Objective Last 24 Hour Vital Signs Date Time Temp Pulse Resp B/P (MAP) Pulse Ox O2 Delivery O2 Flow Rate FiO2 03/16/19 10:12 133/68 03/16/19 10:12 70 133/68 03/16/19 09:00 Room Air 03/16/19 08:00 98.0 70 19 133/68 (89) 97 03/16/19 06:00 69 70 72 03/16/19 04:00 98.3 72 17 132/75 (94) 97 03/16/19 00:00 98.2 77 19 126/66 (86) 98 03/15/19 22:00 72 64 73 03/15/19 21:00 Room Air 03/15/19 20:00 98.4 73 17 121/62 (81) 97 03/15/19 18:40 77 16 Room Air 21 03/15/19 17:18 139/74 03/15/19 16:00 97.9 72 20 139/74 (95) 97 03/15/19 14:00 72 74 79 03/15/19 12:26 158/72 Intake and Output 03/15/19 03/16/19 18:59 06:59 Intake Total 720 ml 300 ml Balance 720 ml 300 ml Intake Oral 720 ml 300 ml # Voids 3 3 General Appearance: WD/WN HEENT: normocephalic, atraumatic Respiratory/Chest: chest wall non-tender, lungs clear Breasts: no masses Cardiovascular: normal rate Abdomen: normal bowel sounds, soft, non tender, no scars Extremities: no clubbing Skin: no lesions Laboratory Tests 03/16/19 10:30: Troponin I 0.027 Current Medications Medications (Trade) Dose Ordered Sig/Prashanth Route PRN Reason Start Time Stop Time Status Last Admin Dose Admin Acetaminophen (Tylenol) 650 mg Q4H PRN ORAL FEVER 03/13/19 15:30 04/11/19 15:29 Albuterol/ Ipratropium (Albuterol/ Ipratropium) 3 ml Q4H PRN HHN Shortness of Breath 03/13/19 16:00 03/17/19 15:59 Amlodipine Besylate (Norvasc) 10 mg DAILY ORAL 03/14/19 09:00 04/12/19 08:59 03/16/19 10:12 Aspirin (ASA) 162 mg DAILY ORAL 03/14/19 09:00 04/12/19 08:59 03/16/19 10:12 Atorvastatin Calcium (Lipitor) 40 mg BEDTIME ORAL 03/15/19 21:00 04/14/19 20:59 03/15/19 20:57 Enalaprilat (Vasotec) 2.5 mg Q6H PRN IV sbp more than 160 03/13/19 16:00 04/11/19 15:59 Heparin Sodium (Porcine) (Heparin 5000 units/ml) 5,000 units EVERY 12 HOURS SUBQ 03/13/19 21:00 04/11/19 20:59 03/16/19 10:13 Hydralazine HCl (Apresoline) 25 mg TID ORAL 03/13/19 18:00 04/11/19 17:59 03/16/19 10:12 Ketorolac Tromethamine (Toradol 30mg) 30 mg Q6H PRN IV moderate pain ( 4-6) 03/13/19 16:00 03/18/19 15:59 Morphine Sulfate (Morphine Sulfate) 2 mg Q4H PRN IVP severe Pain (Pain Scale 7-10) 03/13/19 16:00 03/19/19 15:59 Nitroglycerin (Ntg) 0.4 mg Q5M PRN SL Prn Chest Pain 03/13/19 15:30 04/11/19 15:14 Ondansetron HCl (Zofran) 4 mg Q6H PRN IVP Nausea & Vomiting 03/13/19 16:00 04/11/19 15:59 Polyethylene Glycol (Miralax) 17 gm DAILYPRN PRN ORAL Constipation 03/13/19 16:00 04/12/19 15:59 Regadenoson (Lexiscan) 0.4 mg ONCE PRN IV STRESS TEST 03/14/19 14:30 03/16/19 23:59 Temazepam (Restoril) 15 mg HSPRN PRN ORAL Insomnia 03/14/19 15:15 03/19/19 15:14 Nicole Paul MD Mar 16, 2019 12:08
--- NOTE | 2019-03-16 12:16 | GI Initial Consult Note ---
History of Present Illness General Date patient seen: Mar 16, 2019 Time patient seen: 12:12 Reason for Hospitalization: Generalized Weakness Referring physician: SHO FRANCIS Reason for Consultation: Abdominal pain Present Illness HPI This patient presents from a [id number] facility. She has a history of CVA. She is a hospice program more for her inability to ambulate and inability to perform activities of daily living. She does not have a terminal illness. She does have a history of CVA and hypertension. She had been complaining of leg pain over the past week. Over the past day, her legs have given out about 3 times. She did not actually fall or traumatize her head. She was being assisted by caregivers when these episodes occurred and they were able to hold her without any injury occurring. The patient herself complains of leg pain bilaterally. She denies chest pain or shortness of breath. She denies abdominal pain. She has no other complaints. GI consulted for abdominal pain. Patient was seen, awake alert and oriented x4 no apparent distress with no active signs or symptoms of nausea or vomiting. The patient reported abdominal pain a few days prior. However, states that her abdominal pain is resolved at this time. The patient denies any constipation or diarrhea. She states that she is able to tolerate her diet with no complications. Labs reviewed; no anemia noted, no transaminitis, elevated troponin levels. The patient denies any history of endoscopy or colonoscopy. Home Meds Active Scripts Atorvastatin Calcium* (LIPITOR*) 20 Mg Tablet, 40 MG ORAL BEDTIME for 30 Days, TAB Prov:Nicole Paul MD 03/16/19 Aspirin* (ASPIRIN*) 81 Mg Tab.chew, 162 MG ORAL DAILY for 30 Days, TAB Prov:Nicole Paul MD 03/16/19 Reported Medications Lisinopril (LISINOPRIL*) 5 Mg Tablet, 10 MG ORAL DAILY, TAB 03/12/19 Hydralazine HCl (Hydralazine HCl) 25 Mg Tablet, 25 MG PO TID, TAB 03/12/19 Amlodipine Besylate* (AMLODIPINE BESYLATE*) 10 Mg Tablet, 10 MG ORAL DAILY, TAB 03/12/19 Med list reviewed/reconciled: Yes Allergies: Coded Allergies: No Known Allergies (Unverified , 03/12/19) Patient History History Provided By: Patient, Medical Record [facility] Narrative Past Medical History: see triage record, HTN, CVA/TIA Social History: Reports: smoking; Denies: alcohol use, drug use Reviewed Nursing Documentation: PMH: Agreed; PSxH: Agreed Nursing Documentation-PMH Past Medical History: No History, Except For Hx Hypertension: Yes Social History: Denies: smoking, alcohol use, drug use, other Review of Systems All Other Systems: negative except mentioned in HPI Physical Exam Vital Signs Date Time Temp Pulse Resp B/P (MAP) Pulse Ox O2 Delivery O2 Flow Rate FiO2 03/12/19 10:54 80 24 155/87 96 Room Air 03/12/19 11:33 99.1 03/12/19 19:04 21 Sp02 EP Interpretation: reviewed, normal Labs Laboratory Tests Test 03/16/19 10:30 Troponin I 0.027 ng/mL (0.000-0.056) General Appearance: well appearing, no apparent distress, alert Head: normocephalic EENT: PERRL/EOMI, normal ENT inspection Neck: supple Respiratory: normal breath sounds, no respiratory distress Cardiovascular: normal rate Gastrointestinal: normal inspection, non tender, soft, normal bowel sounds, non -distended Rectal: deferred Genitourinary: no CVA tenderness Musculoskeletal: normal inspection, back normal Neurologic: normal inspection, alert, oriented x3, responsive Psychiatric: normal inspection, judgement/insight normal, memory normal Skin: normal inspection, normal color, no rash, warm/dry, palpation normal, well hydrated Lymphatic: normal inspection, no adenopathy Current Medications Current Medications Medications (Trade) Dose Ordered Sig/Prashanth Route PRN Reason Start Time Stop Time Status Last Admin Dose Admin Acetaminophen (Tylenol) 650 mg Q4H PRN ORAL FEVER 03/13/19 15:30 04/11/19 15:29 Albuterol/ Ipratropium (Albuterol/ Ipratropium) 3 ml Q4H PRN HHN Shortness of Breath 03/13/19 16:00 03/17/19 15:59 Amlodipine Besylate (Norvasc) 10 mg DAILY ORAL 03/14/19 09:00 04/12/19 08:59 03/16/19 10:12 Aspirin (ASA) 162 mg DAILY ORAL 03/14/19 09:00 04/12/19 08:59 03/16/19 10:12 Atorvastatin Calcium (Lipitor) 40 mg BEDTIME ORAL 03/15/19 21:00 04/14/19 20:59 03/15/19 20:57 Enalaprilat (Vasotec) 2.5 mg Q6H PRN IV sbp more than 160 03/13/19 16:00 04/11/19 15:59 Heparin Sodium (Porcine) (Heparin 5000 units/ml) 5,000 units EVERY 12 HOURS SUBQ 03/13/19 21:00 04/11/19 20:59 03/16/19 10:13 Hydralazine HCl (Apresoline) 25 mg TID ORAL 03/13/19 18:00 04/11/19 17:59 03/16/19 10:12 Ketorolac Tromethamine (Toradol 30mg) 30 mg Q6H PRN IV moderate pain ( 4-6) 03/13/19 16:00 03/18/19 15:59 Morphine Sulfate (Morphine Sulfate) 2 mg Q4H PRN IVP severe Pain (Pain Scale 7-10) 03/13/19 16:00 03/19/19 15:59 Nitroglycerin (Ntg) 0.4 mg Q5M PRN SL Prn Chest Pain 03/13/19 15:30 04/11/19 15:14 Ondansetron HCl (Zofran) 4 mg Q6H PRN IVP Nausea & Vomiting 03/13/19 16:00 04/11/19 15:59 Polyethylene Glycol (Miralax) 17 gm DAILYPRN PRN ORAL Constipation 03/13/19 16:00 04/12/19 15:59 Regadenoson (Lexiscan) 0.4 mg ONCE PRN IV STRESS TEST 03/14/19 14:30 03/16/19 23:59 Temazepam (Restoril) 15 mg HSPRN PRN ORAL Insomnia 03/14/19 15:15 03/19/19 15:14 GI: Plan Problems: (1) Abdominal pain (2) Generalized weakness Plan Symptomatic treatment at this time We will consider imaging study if patient has recurrent abdominal pain Regular diet PPI Bowel regimen Zofran as needed PT evaluation Outpatient endoscopy and colonoscopy We will have additional recommendations as we follow Discussed with Dr. Lackey. Thank you for this patient referral. The patient was seen and examined at bedside and all new and available data was reviewed in the patients chart. I agree with the above findings, impression and plan. (Patient seen earlier today. Signature stamp does not reflect patient encounter time.). - MD Daija PerryDuke Raleigh Hospitalamanda WARD Mar 16, 2019 12:16
[2019-03-16] MEDS: Docusate 100mg cap ORAL SCH ×2 (12:30→17:34)
--- NOTE | 2019-03-16 13:16 | Cardiac Electrophysiology PN ---
Assessment/Plan Assessment/Plan 1. Hypertension, on Norvasc 10 mg daily and hydralazine 25 mg 3 times daily. 2. Troponin levels are nonspecific. Echocardiogram EF 60% to 65%. The patient denies any chest pain. Scheduled for stress test 3. Dizziness. No evidence of carotid stenosis. Subjective Subjective No CP or SOB. Stress test rescheduled for tomorrow Objective Last 24 Hour Vital Signs Date Time Temp Pulse Resp B/P (MAP) Pulse Ox O2 Delivery O2 Flow Rate FiO2 03/16/19 12:30 130/72 03/16/19 12:00 97.9 67 20 130/72 (91) 99 03/16/19 10:12 133/68 03/16/19 10:12 70 133/68 03/16/19 09:00 Room Air 03/16/19 08:00 98.0 70 19 133/68 (89) 97 03/16/19 06:00 69 70 72 03/16/19 04:00 98.3 72 17 132/75 (94) 97 03/16/19 00:00 98.2 77 19 126/66 (86) 98 03/15/19 22:00 72 64 73 03/15/19 21:00 Room Air 03/15/19 20:00 98.4 73 17 121/62 (81) 97 03/15/19 18:40 77 16 Room Air 21 03/15/19 17:18 139/74 03/15/19 16:00 97.9 72 20 139/74 (95) 97 03/15/19 14:00 72 74 79 Intake and Output 03/15/19 03/16/19 18:59 06:59 Intake Total 720 ml 300 ml Balance 720 ml 300 ml Intake Oral 720 ml 300 ml # Voids 3 3 Laboratory Tests Test 03/16/19 10:30 Troponin I 0.027 ng/mL (0.000-0.056) Objective HEAD AND NECK: No JVD. LUNGS: Clear. CARDIOVASCULAR: Regular S1 and S2 with no gallop. ABDOMEN: Soft. EXTREMITIES: No pitting edema. Bharathi Dorsey MD Mar 16, 2019 13:16
--- NOTE | 2019-03-16 14:09 | NUR ---
*-* INSURANCE *-* UPDATED CLINICALS AND REVIEWS HAVE BEEN FAXED TO: JAIME MARTINEZ: SUJEY P:[phone] F:[phone] REF# [id number]
[2019-03-16 16:00] VITALS: BP 133/71
--- NOTE | 2019-03-16 16:22 | NUR ---
CASE MANAGEMENT:REVIEW 03/15/19 SI: HTN. ELEVATED TROPONIN 97.3 72 22 145/67 100% ON RA LAST TROPONIN(+) 0.071 IS: NORVASC PO QD ASA PO QD HEPARIN SQ Q12 HYDRALAZINE SQ Q12 : MED/SURG STATUS [facility] DCP: FROM [facility] 03/16/19 SI: ELEVATED TROPONIN. GENERALIZED WEAKNESS. HTN 97.9 67 20 130/72 99% ON RA TROPONIN(-) IS: NORVASC PO QD ASA PO QD HYDRALAZINE PO TID : MED/SURG STATUS 4 [facility] PLAN: STRESS TEST
--- NOTE | 2019-03-16 16:23 | NUR ---
CHARGE NURSE NOTES: CANCEL DISCHARGE PER DR. FRANCIS. FOR STRESS TEST IN AM.
--- NOTE | 2019-03-16 18:44 | Internal Med Progress Note ---
Subjective Date of Service: Mar 16, 2019 Physician Name Tj Mcghee Attending Physician Rory Moran MD Current Medications Medications (Trade) Dose Ordered Sig/Prashanth Route PRN Reason Start Time Stop Time Status Last Admin Dose Admin Acetaminophen (Tylenol) 650 mg Q4H PRN ORAL FEVER 03/13/19 15:30 04/11/19 15:29 Albuterol/ Ipratropium (Albuterol/ Ipratropium) 3 ml Q4H PRN HHN Shortness of Breath 03/13/19 16:00 03/17/19 15:59 Amlodipine Besylate (Norvasc) 10 mg DAILY ORAL 03/14/19 09:00 04/12/19 08:59 03/16/19 10:12 Aspirin (ASA) 162 mg DAILY ORAL 03/14/19 09:00 04/12/19 08:59 03/16/19 10:12 Atorvastatin Calcium (Lipitor) 40 mg BEDTIME ORAL 03/15/19 21:00 04/14/19 20:59 03/15/19 20:57 Docusate Sodium (Colace) 100 mg THREE TIMES A DAY ORAL 03/16/19 13:00 04/15/19 12:59 03/16/19 17:34 Enalaprilat (Vasotec) 2.5 mg Q6H PRN IV sbp more than 160 03/13/19 16:00 04/11/19 15:59 Heparin Sodium (Porcine) (Heparin 5000 units/ml) 5,000 units EVERY 12 HOURS SUBQ 03/13/19 21:00 04/11/19 20:59 03/16/19 10:13 Hydralazine HCl (Apresoline) 25 mg TID ORAL 03/13/19 18:00 04/11/19 17:59 03/16/19 17:34 Ketorolac Tromethamine (Toradol 30mg) 30 mg Q6H PRN IV moderate pain ( 4-6) 03/13/19 16:00 03/18/19 15:59 Morphine Sulfate (Morphine Sulfate) 2 mg Q4H PRN IVP severe Pain (Pain Scale 7-10) 03/13/19 16:00 03/19/19 15:59 Nitroglycerin (Ntg) 0.4 mg Q5M PRN SL Prn Chest Pain 03/13/19 15:30 04/11/19 15:14 Ondansetron HCl (Zofran) 4 mg Q6H PRN IVP Nausea & Vomiting 03/13/19 16:00 04/11/19 15:59 Polyethylene Glycol (Miralax) 17 gm BEDTIME ORAL 03/16/19 21:00 04/15/19 20:59 Polyethylene Glycol (Miralax) 17 gm DAILYPRN PRN ORAL Constipation 03/13/19 16:00 04/12/19 15:59 Regadenoson (Lexiscan) 0.4 mg ONCE PRN IV STRESS TEST 03/14/19 14:30 03/16/19 23:59 Temazepam (Restoril) 15 mg HSPRN PRN ORAL Insomnia 03/14/19 15:15 03/19/19 15:14 Allergies: Coded Allergies: No Known Allergies (Unverified , 03/12/19) ROS Limited/Unobtainable: Yes Subjective 63 YO F admitted with generalized weakness. Now elevated troponin. Cover for Int Med-Dr Moran. Await MRI brain Objective Last Vital Signs Date Time Temp Pulse Resp B/P (MAP) Pulse Ox O2 Delivery O2 Flow Rate FiO2 03/16/19 17:34 133/71 03/16/19 16:00 97.7 71 19 97 03/16/19 09:00 Room Air 03/15/19 18:40 21 Laboratory Tests Test 03/16/19 10:30 Troponin I 0.027 ng/mL (0.000-0.056) Intake and Output 03/15/19 03/16/19 19:00 07:00 Intake Total 720 ml 300 ml Balance 720 ml 300 ml Intake Oral 720 ml 300 ml # Voids 3 3 Objective PHYSICAL EXAMINATION: GENERAL: The patient is a well-developed and well-nourished female in no apparent distress. HEENT: Eyes, pupils are equal and responsive to light and accommodation. Extraocular movements are intact. NECK: Supple without lymphadenopathy. CHEST: Lungs are clear to auscultation bilaterally without wheezes or rales. CARDIOVASCULAR: Regular rhythm and rate. S1 and S2 are normal without murmurs, rubs, or gallops. ABDOMEN: Soft, nontender, and nondistended. Positive bowel sounds. No evidence of hepatosplenomegaly. Currently, no rebound or guarding noted. EXTREMITIES: Negative for clubbing, cyanosis, or edema. RECTAL/GENITAL: Refused. NEUROLOGIC: Cranial nerves II through XII are grossly intact without focal deficits. Assessment/Plan Assessment/Plan ASSESSMENT: This is a 63-year-old female. 1. Weakness in bilateral lower extremities. 2. Hypertension. 3. Elevated troponin TREATMENT: 1. Weakness of bilateral lower extremities mainly secondary to cerebrovascular disease. The patient has had cerebrovascular accident in the past. An MRI of the brain is pending. See neurology note. 2. Hypertension. Continue hydralazine, amlodipine, and lisinopril as above. 3. Elevated troponin. Cardiology consultation is obtained with Tj Lawson MD Mar 16, 2019 18:44
--- NOTE | 2019-03-16 19:30 | NUR ---
NURSE NOTES: Received patient from MELISSA French. Patient is in bed, resting. Alert and oriented x3. Patient is on room air, no s/s of distress. Denies pain at the moment. Bed is locked at the lowest position, call lights within reach, side rails up x2. Will continue to monitor.
--- NOTE | 2019-03-16 19:38 | NUR ---
HAND-OFF: Report given to MELISSA Bernard. Patient is stable. NPO instruction was given for stress test tomorrow.
[2019-03-16 20:00] VITALS: BP 134/69
[2019-03-16] MEDS: Atorvastatin 20mg tab ORAL SCH (20:22)
--- NOTE | 2019-03-16 20:30 | NUR ---
NURSE NOTES: PATIENT IN BED, AOX2. IV IN PLACE. NO S/S DISTRESS NOTED. NO COMPLAINTS OF PAIN AT THIS TIME. BED IN LOWEST POSITION, CALL LIGHT WITHIN REACH, BED ALARM ON. WILL CONTINUE TO MONITOR.
[2019-03-16] MEDS ORDERED: Miralax 17gm pkt ORAL SCH (21:00)
--- NOTE | 2019-03-16 22:18 | NUR ---
NURSE NOTES: Nurse noticed stat d/c order put in by Dr. Paul. Notified Dr. Paul that the previous d/c order was cancelled by Dr. Moran since patient is scheduled for stress test tomorrow. Also notified Dr. Moran about Dr. Paul's d/c order and Dr. Moran responded to d/c patient. 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 Left message for Dr. Moran. Charge nurse aware. Addendum: 03/17/19 at 0308 by LISA MANZANO RN RN Also received order Dr. Moran to d/c stress test. Order carried out. Charge nurse aware.
--- NOTE | 2019-03-16 23:02 | NUR ---
NURSE NOTES: Left message for Dr. Davis that both Dr. Paul and Dr. Moran want to d/c patient and d/c stress test scheduled for tomorrow AM.
[2019-03-17] VITALS: BP 140/72
[2019-03-17 04:40] VITALS: BP 123/66
[2019-03-17 06:32] LABS: BASOPHILS % (AUTO) 0.4 % (0.0-2.0); EOSINOPHILS % (AUTO) 1.2 % (0.0-3.0); HEMATOCRIT 38.9 % (37.0-47.0); HEMOGLOBIN 13.1 G/DL (12.0-16.0); LYMPHOCYTES % (AUTO) 52.8 % (20.0-45.0); MEAN CORPUSCULAR VOLUME 90 FL (80-99); MONOCYTES % (AUTO) 7.2 % (1.0-10.0); NEUTROPHILS % (AUTO) 38.4 % (45.0-75.0); PLATELET COUNT 168 K/UL (150-450); RED BLOOD COUNT 4.33 M/UL (4.20-5.40); RED CELL DISTRIBUTION WIDTH 12.6 % (11.6-14.8); WHITE BLOOD COUNT 5.7 K/UL (4.8-10.8)
[2019-03-17 06:59] LABS: ANION GAP 7 mmol/L (5-15); BLOOD UREA NITROGEN 19 mg/dL (7-18); CALCIUM 8.7 MG/DL (8.5-10.1); CARBON DIOXIDE 26 MMOL/L (21-32); CHLORIDE 107 MMOL/L (98-107); CREATININE 0.9 MG/DL (0.55-1.30); POTASSIUM 4.1 MMOL/L (3.5-5.1); SODIUM 140 MMOL/L (136-145)
--- NOTE | 2019-03-17 07:30 | NUR ---
NURSE NOTES: Received pt from MELISSA GONZALEZ. Pt is confused and orient x2. Pt is in RA, No SOB or acute respiratory distress noted. pt has intact iv access LH 22G SL. all needs attended, bed is locked and is in the lowest position, call light within easy reach. will continue to monitor.
--- NOTE | 2019-03-17 07:30 | NUR ---
HAND-OFF: Report given to TEO Vázquez RN. Addendum: 03/17/19 at 0745 by LISA MANZANO RN RN ENDORSED TO AM NURSE TO FOLLOW UP REGARDING DISCHARGE ORDER.
[2019-03-17 08:00] VITALS: BP 132/71
[2019-03-17 09:02] VITALS: BP 132/71
[2019-03-17] MEDS: HydrALAZINE 25mg tab ORAL SCH (09:02)
[2019-03-17] MEDS: Docusate 100mg cap ORAL SCH (09:02)
[2019-03-17] MEDS: Aspirin Baby 81mg ORAL SCH (09:02)
[2019-03-17] MEDS: Heparin 5000 units/ml inj SUBQ SCH (09:09)
--- NOTE | 2019-03-17 10:13 | NUR ---
NURSE NOTES: All discharge assessments and instructions done. pt is stable . V/S stable. prescription send to pharmacy and got medications and given to pt. called [facility] leaving and left massage about discharging. rn complex care is aware about discharging. iv access D/C. Pt left hospital with accompany of hospital personnel.
--- NOTE | 2019-03-17 10:45 | GI Progress Note ---
Assessment/Plan Problems: (1) Abdominal pain ICD Codes: R10.9 - Unspecified abdominal pain SNOMED: 83259514 (2) History of hypertension ICD Codes: Z86.79 - Personal history of other diseases of the circulatory system SNOMED: 043998665 (3) Left-sided weakness ICD Codes: R53.1 - Weakness SNOMED: 324100551 Status: stable Status Narrative Discussed with Dr. Lackey. Assessment/Plan Symptomatic treatment at this time We will consider imaging study if patient has recurrent abdominal pain Regular diet PPI Bowel regimen Zofran as needed PT evaluation Outpatient endoscopy and colonoscopy The patient was seen and examined at bedside and all new and available data was reviewed in the patients chart. I agree with the above findings, impression and plan. (Patient seen earlier today. Signature stamp does not reflect patient encounter time.). - Jovany Lackey MD Subjective Gastrointestinal/Abdominal: Reports: no symptoms Objective Last 24 Hour Vital Signs Date Time Temp Pulse Resp B/P (MAP) Pulse Ox O2 Delivery O2 Flow Rate FiO2 03/17/19 09:02 132/71 03/17/19 09:02 75 132/71 03/17/19 09:00 Room Air 03/17/19 08:00 97.5 75 16 132/71 (91) 97 03/17/19 06:57 72 14 Room Air 21 03/17/19 06:50 75 72 80 03/17/19 04:40 98.0 71 18 123/66 (85) 98 03/17/19 00:00 98.2 84 15 140/72 (94) 96 03/16/19 22:00 84 85 95 03/16/19 21:00 Room Air 03/16/19 20:00 98.2 75 18 134/69 (90) 98 03/16/19 20:00 75 16 Room Air 21 03/16/19 17:34 133/71 03/16/19 16:00 97.7 71 19 133/71 (91) 97 03/16/19 14:00 69 70 70 03/16/19 12:30 130/72 03/16/19 12:00 97.9 67 20 130/72 (91) 99 Intake and Output 03/16/19 03/17/19 19:00 07:00 Intake Total 480 ml Balance 480 ml Intake Oral 480 ml # Voids 3 2 # Bowel Movements 2 Laboratory Tests Test 03/17/19 05:05 White Blood Count 5.7 K/UL (4.8-10.8) Red Blood Count 4.33 M/UL (4.20-5.40) Hemoglobin 13.1 G/DL (12.0-16.0) Hematocrit 38.9 % (37.0-47.0) Mean Corpuscular Volume 90 FL (80-99) Mean Corpuscular Hemoglobin 30.2 PG (27.0-31.0) Mean Corpuscular Hemoglobin Concent 33.6 G/DL (32.0-36.0) Red Cell Distribution Width 12.6 % (11.6-14.8) Platelet Count 168 K/UL (150-450) Mean Platelet Volume 9.4 FL (6.5-10.1) Neutrophils (%) (Auto) 38.4 % (45.0-75.0) L Lymphocytes (%) (Auto) 52.8 % (20.0-45.0) H Monocytes (%) (Auto) 7.2 % (1.0-10.0) Eosinophils (%) (Auto) 1.2 % (0.0-3.0) Basophils (%) (Auto) 0.4 % (0.0-2.0) Sodium Level 140 MMOL/L (136-145) Potassium Level 4.1 MMOL/L (3.5-5.1) Chloride Level 107 MMOL/L (98-107) Carbon Dioxide Level 26 MMOL/L (21-32) Anion Gap 7 mmol/L (5-15) Blood Urea Nitrogen 19 mg/dL (7-18) H Creatinine 0.9 MG/DL (0.55-1.30) Estimat Glomerular Filtration Rate > 60 mL/min (>60) Glucose Level 85 MG/DL (74-106) Calcium Level 8.7 MG/DL (8.5-10.1) Height (Feet): 4 Height (Inches): 11.00 Weight (Pounds): 196 General Appearance: WD/WN, no apparent distress, alert Cardiovascular: normal rate Respiratory/Chest: normal breath sounds, no respiratory distress Abdominal Exam: normal bowel sounds, non tender, soft Extremities: normal range of motion, non-tender Juan R Choe BRIDGE TENDER Mar 17, 2019 10:45
--- NOTE | 2019-03-18 08:30 | Discharge Summary ---
Discharge Summary Discharge Summary _ DATE OF ADMISSION: 03/12/2019 DATE OF DISCHARGE: 03/17/2019 DISCHARGED BY: Dr. Moran REASON FOR ADMISSION: 63 years old female with past medical history of hypertension, CVA with left- sided weakness, presented from [facility] with complaint of leg pain over the past week. Patient presented to emergency department complaining of leg pain over the past week. Over the past day her legs were giving out about 3 times. Patient did not actually fall or traumatize her head. Patient denied chest pain or shortness of breath. Patient denied abdominal pain. Upon evaluation vitals stable were stable. Laboratory work-up revealed no leukocytosis, stable hemoglobin and hematocrit. Urinalysis was negative for evidence of UTI. Stable electrolytes. BUN 21, creatinine 1.0, stable LFT. Troponin slightly elevated -0.088.EKG revealed sinus rhythm, no acute ischemic changes. Albumin 3.7. Chest x-ray revealed no acute pathology. Patient subsequently was admitted for further management due to elevated troponin CONSULTANTS: lymphedema therapist Dr. Vargas neurologist Dr. Park pulmonary Dr. Paul GI specialist Dr. Lackey [facility] COURSE: Patient initially admitted to telemetry floor. Serial troponin were trending. Troponin trending down, last troponin negative. EKG revealed sinus rhythm, no acute ischemic changes. Echocardiogram demonstrated ejection fraction 65 to 70% with mild left ventricular hypertrophy. No evidence of wall motion abnormality. Right ventricular systolic pressure of 36 consistent with mild pulmonary hypertension. Mail Clerk Bills followed. Per lymphedema therapist, troponin levels were nonspecific and flat, not consistent with the pattern of acute myocardial infarction. Patient by herself denied chest pain. Patient also complained of dizziness. No evidence of carotid stenosis on carotid ultrasound. No evidence of orthostatic changes. Antiplatelet therapy with aspirin and statin were continued. Lipid panel was stable. TSH within normal limits Blood pressure was managed with calcium channel osiris and hydralazine and remained stable. Nuclear stress test initially was ordered, but later was canceled , could be done as outpatient. Patient remains in sinus rhythm, no evidence of arrhythmia . Venous Doppler revealed no evidence of acute DVT no evidence of carotid stenosis. DVT prophylaxis provided. Supplemental oxygen was on board as needed to keep oximetry above 92%. Pulse oximetry was stable on room air. Respiratory status remained stable. Pulse oximetry was stable on room air. Patient was working with a physical therapist. Fall precautions were maintained. Hemoglobin A1c at goal. Neurologist followed-up. Initially neuro-checks were done every 4 hours and were stable. No new focal deficit noted. MRI of the brain revealed no evidence of acute intracranial pathology. GI specialist consulted for prior complaints of abdominal pain. No nausea, no vomiting, no diarrhea. Symptomatic treatment was c provided at this time. Per GI specialist consider imaging study with recurrent abdominal pain. Bowel regimen instituted. Antiemetic provided as needed. Patient was started on PPI. GI specialist recommended outpatient endoscopy and colonoscopy. Patient was able to tolerate diet. Hemoglobin hematocrit remained stable. No nausea, no vomiting, no diarrhea. No further recurrence of abdominal pain. Patient clinically stabilized and was ready for transfer back to [facility], where she was under hospice services. FINAL DIAGNOSES: Elevated troponin Hypertension History of CVA left-sided weakness Generalized weakness Abdominal pain DISCHARGE MEDICATIONS: See Medication Reconciliation list. DISCHARGE INSTRUCTIONS: Patient was discharged to [facility] , where she was under hospice services. Follow up with primary care provider in one week. I have been assigned to dictate discharge summary for this account. I was not involved in the patient's management. Lana Duran NP Mar 18, 2019 08:30
--- NOTE | 2019-03-19 14:55 | Diagnostic Imaging Report ---
Indications: Altered mental status Technique: Spiral acquisitions obtained through the brain. Angled axial and coronal 5 x 5 mm slices were reconstructed. Total dose length product 1245 mGycm. CTDI vol(s) 7 mGy. Dose reduction achieved using automated exposure control Comparison: None. Findings: No acute intracranial hemorrhage or edema, mass effect, nor midline shift. There is age-related enlargement of the ventricles and extra-axial CSF spaces. There is fairly extensive periventricular deep white matter low-attenuation, consistent with chronic microvascular ischemic change. Visualized orbits and sinuses are unremarkable. Intact calvarium. Impression: Chronic and age-related changes. Negative for acute intracranial bleed or mass effect The CT scanner at [facility] is accredited by the [employer] and the scans are performed using protocols designed to limit radiation exposure to as low as reasonably achievable to attain images of sufficient resolution adequate for diagnostic evaluation.
--- NOTE | 2019-03-22 22:55 | Diagnostic Imaging Report ---
APPROVED REPORT CPT Code: 19715 Vascular Symptoms Comments: SYNCOPE. Doppler Spectral Velocity Analysis RightLeft BILATERAL: CCA/BULB - Imaging reveals irregular, minimal plaque in both carotid bulbs. arteries. The Doppler spectral flow analysis is within normal limits throughout the internal and external carotid arteries. VERTEBRALS - Imaging reveals both vertebral arteries to be patent, without evidence of stenosis or steal.
--- NOTE | 2019-03-22 22:57 | Diagnostic Imaging Report ---
APPROVED REPORT CPT Code: 65571 Present Symptoms Comments: BILATERAL LEGS PAIN. BILATERAL: Imaging reveals a patent deep venous system bilaterally. There is no evidence of thrombus within the femoral, popliteal or tibial segments. The greater saphenous veins are also within normal limits. Doppler indicates normal spontaneous flow within these segments.
== END 2019-03-17 10:10 | disposition home health service (06) | DRG 58 ==
LOC: EMR 11:54 → 2E 13:45 → EDBEDREQ 14:11 → 4E 03-13 15:10
DX: I69.354 Hemiplegia and hemiparesis following cerebral infarction affecting left non-dominant side (principal); I10 Essential (primary) hypertension; Z86.73 Personal history of transient ischemic attack (TIA), and cerebral infarction without residual deficits; R74.8 Abnormal levels of other serum enzymes; R10.9 Unspecified abdominal pain; R26.2 Difficulty in walking, not elsewhere classified
CPT/HCPCS: 36415; 70450; 70551; 71045; 80048; 80053; 80061; 81003; 82550; 82553; 83036; 83605; 83735; 84100; 84443; 84484; 85007; 85025; 85610; 85730; 86140; 87040; 87081; 93005; 93306; 93880; 93970; 94664; 96360; 99285; J2785

== ENCOUNTER 2019-07-26 23:54 | Inpatient (IN) | payer OTHER ==
[~2019-07-26] VITALS: Ht 149.9 cm; Wt 90.7 kg
[~2019-07-26 23:54] MED LIST: AMLODIPINE BESY10 MG ORAL; ASPIRIN81 MG ORAL; HYDRALAZINE HCL25 M2 PO; LIPITOR20 MG ORAL; LISINOPRIL5 MG ORAL
--- NOTE | 2019-07-26 23:56 | NUR ---
ED Nurse Note: PATIENT MABLE AYERS FROM [facility] AND CARE FOR GENERAL WEAKNESS X 1 DAY. HAS HX OF STROKE WITH LEFT SIDED WEAKNESS, HTN, DM. ALERT AND ORIENTED. BREATHING EVEN AND UNLABORED. PATIENT USUALLY WALKS WITH CANE. TACHY AND HOT TO TOUCH UPON ARRIVAL. NO SOB.
[2019-07-27] VITALS (8 sets, daily range): BP systolic 110–160; BP diastolic 65–84
[2019-07-27] MEDS ORDERED: Acetaminophen 650 MG SUPP RECTAL ONE
--- NOTE | 2019-07-27 00:03 | Emergency Room Report ---
History of Present Illness General Chief Complaint: Generalized Weakness Source: Patient Present Illness HPI Resents with altered mentation and weakness. She is a history of urinary tract infections in the past. She had a stroke and has chronic left-sided weakness. In addition the patient is slightly tachypneic. The patient is status post stroke and unable to give further medical history. Although there is a positive smoking history the patient has no history of COPD or wheezing in the past. Patient last admitted here with elevated troponin in February of this year with these d/c dx: Elevated troponin Hypertension History of CVA left-sided weakness Generalized weakness Abdominal pain Allergies: Coded Allergies: No Known Allergies (Unverified , 03/12/19) Patient History Limited by: medical condition Past Medical History: see triage record, old chart reviewed Social History: Reports: smoking Social History Narrative correction facility Reviewed Nursing Documentation: PMH: Agreed; PSxH: Agreed Nursing Documentation-PMH Past Medical History: No History, Except For Hx Cardiac Problems: Yes Hx Hypertension: Yes Hx Cancer: No Hx Gastrointestinal Problems: No Hx Neurological Problems: No Review of Systems All Other Systems: limited Physical Exam Vital Signs Date Time Temp Pulse Resp B/P (MAP) Pulse Ox O2 Delivery O2 Flow Rate FiO2 07/26/19 23:56 99.0 121 16 142/96 (111) 97 Room Air Sp02 EP Interpretation: reviewed, normal General Appearance: obese, other - Plethoric, Chronically Ill Head: normocephalic Eyes: bilateral eye normal inspection, bilateral eye PERRL ENT: dry mucus membranes - poor dentition Neck: supple Respiratory: chest non-tender, wheezing, expiration Cardiovascular #1: tachycardia, edema Cardiovascular #2: 2+ radial (R) Gastrointestinal: non tender, soft, no guarding, no rebound, overweight Genitourinary: no CVA tenderness Musculoskeletal: back normal Neurologic: alert, motor weakness - left hemiparesis, other - And answering questions are responding to name Psychiatric: other - Affect Skin: no rash, other - Plethoric facies Medical Decision Making Diagnostic Impression: Primary Impression: Acute renal failure Qualified Codes: N17.9 - Acute kidney failure, unspecified Additional Impressions: Dehydration Bronchospasm Left-sided weakness ER Course Patient sent in for allegedly feeling warm to the touch with history of acute urinary tract infections in the past. She is a very complicated patient as she is unable to give us a history at this time. We need to exclude acute myocardial infarction, sepsis, UTI, other occult infection. She does have some respiratory difficulty with bilateral anterior wheezing. She will receive a fluid bolus and also breathing treatments. In addition we will give her Tylenol as she feels warm to the touch. EKG without acute injury. Chest x-ray no infiltrate with poor inspiration. Labs with normal white count. Elevated hemoglobin hematocrit. BUN and creatinine are quite a bit elevated from previous samples. This is clear. Patient still appears plethoric but remains afebrile. Her heart rate is improved. Patient with recurrent wheezing. Second breathing treatment is ordered. Patient smiling and more responsive with fluids. 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 Downgrade as VS improved. (Will probably need hospital admission). Admit observation . Laboratory Tests Test 07/27/19 00:00 07/27/19 01:25 White Blood Count 8.8 K/UL (4.8-10.8) Red Blood Count 5.50 M/UL (4.20-5.40) H Hemoglobin 16.6 G/DL (12.0-16.0) H Hematocrit 49.3 % (37.0-47.0) H Mean Corpuscular Volume 90 FL (80-99) Mean Corpuscular Hemoglobin 30.2 PG (27.0-31.0) Mean Corpuscular Hemoglobin Concent 33.6 G/DL (32.0-36.0) Red Cell Distribution Width 12.1 % (11.6-14.8) Platelet Count 183 K/UL (150-450) Mean Platelet Volume 8.6 FL (6.5-10.1) Neutrophils (%) (Auto) 55.3 % (45.0-75.0) Lymphocytes (%) (Auto) 39.3 % (20.0-45.0) Monocytes (%) (Auto) 4.4 % (1.0-10.0) Eosinophils (%) (Auto) 0.4 % (0.0-3.0) Basophils (%) (Auto) 0.6 % (0.0-2.0) Prothrombin Time 10.2 SEC (9.30-11.50) Prothrombin Time INR 1.0 (0.9-1.1) PTT 27 SEC (23-33) Sodium Level 143 MMOL/L (136-145) Potassium Level 4.2 MMOL/L (3.5-5.1) Chloride Level 107 MMOL/L (98-107) Carbon Dioxide Level 30 MMOL/L (21-32) Blood Urea Nitrogen 20 mg/dL (7-18) H Creatinine 2.0 MG/DL (0.55-1.30) H Estimate Glomerular Filtration Rate 25.1 mL/min (>60) Glucose Level 111 MG/DL (74-106) H Lactic Acid Level 1.30 mmol/L (0.4-2.0) Calcium Level 9.5 MG/DL (8.5-10.1) Magnesium Level 1.8 MG/DL (1.8-2.4) Total Bilirubin 0.3 MG/DL (0.2-1.0) Aspartate Amino Transferase (AST) 15 U/L (15-37) Alanine Aminotransferase (ALT) 14 U/L (12-78) Alkaline Phosphatase 81 U/L (46-116) Total Creatine Kinase 98 U/L (26-308) Troponin I 0.015 ng/mL (0.000-0.056) Pro-B-Type Natriuretic Peptide 76 pg/mL (0-125) Total Protein 8.5 G/DL (6.4-8.2) H Albumin 4.1 G/DL (3.4-5.0) Globulin 4.4 g/dL Albumin/Globulin Ratio 0.9 (1.0-2.7) L Lipase 121 U/L (73-393) Urine Color Pale yellow Urine Appearance Clear Urine pH 6 (4.5-8.0) Urine Specific [place] 1.010 (1.005-1.035) Urine Protein Negative (NEGATIVE) Urine Glucose (UA) Negative (NEGATIVE) Urine Ketones 2+ (NEGATIVE) H Urine Blood Negative (NEGATIVE) Urine Nitrite Negative (NEGATIVE) Urine Bilirubin Negative (NEGATIVE) Urine Urobilinogen Normal MG/DL (0.0-1.0) Urine Leukocyte Esterase Negative (NEGATIVE) EKG Diagnostic Results Rate: tachycardiac Rhythm: NSR ST Segments: no acute changes Rhythm Strip Diag. Results EP Interpretation: yes Rhythm: no PVC's, no ectopy, other - ST Chest X-Ray Diagnostic Results Chest X-Ray Diagnostic Results : Chest X-Ray Ordered: Yes # of Views/Limited/Complete: 1 View Indication: Shortness of Breath Interpretation: no consolidation, no effusion, no pneumothorax, other - poor inspiration Impression: Other Electronically Signed by: Electronically signed by Flash Cherry MD Last Vital Signs Date Time Temp Pulse Resp B/P (MAP) Pulse Ox O2 Delivery O2 Flow Rate FiO2 07/27/19 08:49 81 18 94 Room Air 21 07/27/19 08:00 97.6 148/76 (100) Status: improved Disposition: ADMITTED INPATIENT Condition: Serious Flash Cherry MD Jul 27, 2019 00:03
[2019-07-27] MEDS ORDERED: Albuterol/Ipratropium 3ml neb HHN ONE (00:15)
[2019-07-27 00:36] LABS: BASOPHILS % (AUTO) 0.6 % (0.0-2.0); EOSINOPHILS % (AUTO) 0.4 % (0.0-3.0); HEMATOCRIT 49.3 % (37.0-47.0); HEMOGLOBIN 16.6 G/DL (12.0-16.0); LYMPHOCYTES % (AUTO) 39.3 % (20.0-45.0); MEAN CORPUSCULAR VOLUME 90 FL (80-99); MONOCYTES % (AUTO) 4.4 % (1.0-10.0); NEUTROPHILS % (AUTO) 55.3 % (45.0-75.0); PLATELET COUNT 183 K/UL (150-450); RED CELL DISTRIBUTION WIDTH 12.1 % (11.6-14.8); WHITE BLOOD COUNT 8.8 K/UL (4.8-10.8)
--- NOTE | 2019-07-27 01:00 | NUR ---
ED Nurse Note: Cooling measures applied for fever. Temp 97.9 orally. No SOB. Breathing even and unlabored.
[2019-07-27 01:16] LABS: ALANINE AMINOTRANSFERASE 14 U/L (12-78); ALBUMIN 4.1 G/DL (3.4-5.0); ALBUMIN/GLOBULIN RATIO 0.9 (1.0-2.7); ALKALINE PHOSPHATASE 81 U/L (46-116); ASPARTATE AMINO TRANSFERASE 15 U/L (15-37); BILIRUBIN,TOTAL 0.3 MG/DL (0.2-1.0); BLOOD UREA NITROGEN 20 mg/dL (7-18); CALCIUM 9.5 MG/DL (8.5-10.1); CARBON DIOXIDE 30 MMOL/L (21-32); CREATINE KINASE 98 U/L (26-308)
--- NOTE | 2019-07-27 01:20 | Diagnostic Imaging Report ---
EXAM: XR Chest, 1 View CLINICAL HISTORY: ALOC TECHNIQUE: Frontal view of the chest. COMPARISON: 03/12/2019 FINDINGS: Lungs: Underinflated but clear. No consolidation. Pleural space: Unremarkable. No pneumothorax. Heart: Unremarkable. No cardiomegaly. Mediastinum: Unremarkable. Bones/joints: Osteopenia. Mild degenerative changes. IMPRESSION: No acute findings or substantial change.
[2019-07-27 01:26] LABS: CHLORIDE 107 MMOL/L (98-107); POTASSIUM 4.2 MMOL/L (3.5-5.1); SODIUM 143 MMOL/L (136-145)
[2019-07-27 02:38] LABS: APPEARANCE,URINE CLEAR; BILIRUBIN, URINE NEGATIVE (NEGATIVE); COLOR,URINE PALE YELLOW; GLUCOSE, URINE (UA) NEGATIVE (NEGATIVE); KETONES,URINE 2+ (NEGATIVE); LEUKOCYTE ESTERASE ,URINE NEGATIVE (NEGATIVE); NITRITE,URINE NEGATIVE (NEGATIVE); PH,URINE 6 (4.5-8.0); PROTEIN,URINE NEGATIVE (NEGATIVE); UROBILINOGEN,URINE NORMAL MG/DL (0.0-1.0)
[2019-07-27] MEDS ORDERED: Albuterol ud Inhalation HHN ONE (03:45)
[2019-07-27] MEDS ORDERED: Solu-MEDROL 125mg Inj IVP ONE (04:00)
--- NOTE | 2019-07-27 04:33 | NUR ---
ED Nurse Note: Patient alert and oriented, verbally responsive. No SOB. Breathing even and unlabored. Afebrile. No c/o pain or any discomfort. VSS.
--- NOTE | 2019-07-27 05:08 | NUR ---
TRANSFER TO FLOOR: Patient transferred to MS unit. Report given to Ruchi RN. Patient is alert and oriented, verbally responsive. Afebrile. Breathing even and unlabored. On NS 1L, infusing well. IV line on right AC 20g. With FC 16FR, patent and draining well. Belongings was given to the patient. VSS.
--- NOTE | 2019-07-27 05:10 | NUR ---
NURSE NOTES: Receive a report from MELISSA Valverde from ED. Pt is newly admitted from ED via gurney. Pt is awake and alert. Verbally responsive in Egyptian but noted dysarthria. Left side weakness noted. No skin issues noted beside old scar on left leg. IV is on right AC. Breathing is even and non labored. No wheezing or crackling noted. Spo2 checked as 99% in RA. Denies any pain. No chilling or febrile sensation. Belonging has checked. Call light within reach. Bed is locked and lowest. Will continue to monitor. v/s: 120/70-78-20-98.8-99%-0/10 PA
--- NOTE | 2019-07-27 05:30 | NUR ---
NURSE NOTES: Colvin catheter inserted state and yellowish urine patent. No sediment noted. Keep NPO for now for further orders.
--- NOTE | 2019-07-27 06:42 | NUR ---
NURSE NOTES: Call to Dr. Rader for pt's admission and left a message. Waiting for a callback for admission order. Will continue to monitor pt and endorse AM shift.
--- NOTE | 2019-07-27 07:10 | NUR ---
NURSE NOTES: Receive a call-back from MD. He will come and give admission orders. Will endorse to AM nurse.
--- NOTE | 2019-07-27 07:25 | NUR ---
NURSE NOTES: Received report from MELISSA Hopper. Rounding done with outgoing nurse. Pt a/o x 3, in bed. No respiratory distress noted. Denies any pain at this time. Colvin catheter is in placed, yellowish color noted. Bed in lowest position, call light within reach. Will continue to monitor.
--- NOTE | 2019-07-27 07:30 | NUR ---
HAND-OFF: Report given to MELISSA Foley. Round is done. Pt is asleep.
[2019-07-27] MEDS ORDERED: D5NS 1,000 ML IV SCH (08:00)
[2019-07-27] MEDS ORDERED: Albuterol/Ipratropium 3ml neb HHN PRN (08:15)
--- NOTE | 2019-07-27 11:18 | Diagnostic Imaging Report ---
EXAM: US Abdomen Limited, Right Upper Quadrant CLINICAL HISTORY: ABN LABS TECHNIQUE: Real-time ultrasound of the right upper quadrant with image documentation. COMPARISON: No relevant prior studies available. FINDINGS: Liver: Liver measures 12.01 cm. No intrahepatic bile duct dilation. Gallbladder: Gallbladder wall is normal, 2.2 mm. No gallstones. Common bile duct: CBD normal, 3.8 mm. No stones. No dilation. Pancreas: Unremarkable as visualized. Right kidney: 1.22 cm anechoic cyst upper pole of the right kidney. Right renal cortical scarring likely from old infections. Right kidney measures 8.65 x 4.76 x 4.54 cm. No stones. No hydronephrosis. IMPRESSION: 1.22 cm anechoic cyst upper pole of the right kidney. Right renal cortical scarring likely from old infections.
--- NOTE | 2019-07-27 12:09 | NUR ---
NURSE NOTES: Patient is off the unit for CT of head in stable condition.
--- NOTE | 2019-07-27 12:42 | Consultation ---
Consult Note Consult Note I was asked to evaluate by Dr Rader for elevated Cr patient interviewed examined data reviewed ER Resents with altered mentation and weakness. She is a history of urinary tract infections in the past. She had a stroke and has chronic left-sided weakness. In addition the patient is slightly tachypneic. The patient is status post stroke and unable to give further medical history. Although there is a positive smoking history the patient has no history of COPD or wheezing in the past. Patient last admitted here with elevated troponin in February of this year with these d/c dx: Elevated troponin Hypertension History of CVA left-sided weakness Generalized weakness Abdominal pain No Known Allergies (Unverified , 03/12/19) Past Medical History: No History, Except For Hx Cardiac Problems: Yes Hx Hypertension: Yes Assessment/Plan Renal failure, acure vs chronic ? Dehydration left weakness , s/p CVA bronchospasm abd pain Hydrate- Avoid Nephrotoxics Monitor renal parameters pulm support Jayant Vang MD Jul 27, 2019 12:42
--- NOTE | 2019-07-27 13:00 | NUR ---
NURSE NOTES: Patient came back to the unit.
[2019-07-27] MEDS: Docusate 100mg cap ORAL SCH ×2 (13:24→17:07)
[2019-07-27] MEDS: D5 1/2NS 1,000 ML IV SCH (13:25)
[2019-07-27] MEDS: NovoLOG Insulin Flexpen SUBQ SCH ×3 (13:26→21:00)
[2019-07-27 14:57] LABS: CHOLESTEROL 143 MG/DL (< 200); HDL CHOLESTEROL 48 MG/DL (40-60); TRIGLYCERIDES 27 MG/DL (30-150)
--- NOTE | 2019-07-27 16:45 | History and Physical Report ---
DATE OF ADMISSION: 07/27/2019 SOURCE OF INFORMATION: EMR. HISTORY OF PRESENT ILLNESS: The patient is a 63-year-old female. Poor historian. The patient is delirious at the time of evaluation. Per emergency room evaluation, the patient had been presented regarding the change in mental status with a history of UTI. The patient has also history of a stroke and weakness. Otherwise, remainder of information cannot be obtained. REVIEW OF SYSTEMS: Unobtainable. PAST MEDICAL HISTORY: Including but not limited to CVA, hypertension. ALLERGIES: NKDA. MEDICATIONS: Current hospital medications including, but not limited to sliding scale insulin. Outpatient medications including amlodipine, aspirin, hydralazine. LABORATORY AND DIAGNOSTIC DATA: Chest x-ray dated 07/27/2019 unremarkable. Labs dated 07/27/2019 BUN 20 and creatinine 2. Labs dated 07/27/2019 reviewed. PHYSICAL EXAMINATION: VITAL SIGNS: Blood pressure 130/80, temperature 98.2, pulse oximetry 98% on room air, respiratory rate 18, and pulse rate 120. HEAD AND NECK: Atraumatic and normocephalic. CHEST: Clear to auscultation. HEART: S1, S2. Regular rate and rhythm. ABDOMEN: Soft. No organomegaly. MUSCULOSKELETAL: No gross lateralized motor deficits. However, this is a limited evaluation, musculoskeletal positive for spontaneous movement of all four extremities. Limited evaluation. ASSESSMENT: 1. Acute encephalopathy. 2. Hypertension. 3. Renal failure-age indeterminate. 4. GI and DVT prophylaxis. 5. Hyperlipidemia. PLAN OF CARE: I will keep the patient NPO. Continue with the IV hydration. We will do the head CT. Continue with the blood pressure medication. Nephrology consulted. We will obtain the abdominal ultrasound. Bill Rader M.D. DR: Erna JOB#: [id number] CC:
--- NOTE | 2019-07-27 19:15 | NUR ---
NURSE NOTES: Receive a report from MELISSA Foley. Round is done. Pt is awake and alert. Verbally responsive in Zimbabwean. No acute distress noted. SCDs on bilateral extremities. Colvin catheter inserted state and patent with yellowish urine. Denies any pain. D51/2 NS 75ml/hr running on right AC without infiltration. Call light within reach. Will continue to monitor.
--- NOTE | 2019-07-27 19:30 | NUR ---
NURSE NOTES: Receive a report from MELISSA Foley. Round is done. Pt is awake and alert. No acute distress noted. Denies any pain. Noted dysarthria but able to communicate and verbally responsive in Moldovan. Colvin catheter inserted state and patent with yellowish urine. Leave call light within reach. No chilling or febrile sensation. Will continue to monitor.
--- NOTE | 2019-07-27 19:37 | NUR ---
HAND-OFF: Report given to MELISSA Hopper.
[2019-07-28] VITALS: BP 130/80
[2019-07-28] MEDS: D5 1/2NS 1,000 ML IV SCH ×2 (00:54→14:42)
[2019-07-28 04:45] VITALS: BP 130/80
[2019-07-28] MEDS: NovoLOG Insulin Flexpen SUBQ SCH ×4 (06:30→20:53)
--- NOTE | 2019-07-28 07:00 | NUR ---
NURSE NOTES: Left Dr. Rader to switch to in-patient admission. Endorse to AM shift nurse.
[2019-07-28 07:02] LABS: ALANINE AMINOTRANSFERASE 9 U/L (12-78); ALBUMIN/GLOBULIN RATIO 0.9 (1.0-2.7); ALKALINE PHOSPHATASE 50 U/L (46-116); ANION GAP 10 mmol/L (5-15); ASPARTATE AMINO TRANSFERASE 12 U/L (15-37); BILIRUBIN,TOTAL 0.3 MG/DL (0.2-1.0); BLOOD UREA NITROGEN 16 mg/dL (7-18); CALCIUM 8.9 MG/DL (8.5-10.1); CARBON DIOXIDE 23 MMOL/L (21-32); CHLORIDE 113 MMOL/L (98-107); CREATININE 1.3 MG/DL (0.55-1.30); PHOSPHORUS 3.5 MG/DL (2.5-4.9); SODIUM 146 MMOL/L (136-145)
[2019-07-28 07:05] LABS: BASOPHILS % (AUTO) 0.2 % (0.0-2.0); HEMATOCRIT 39.8 % (37.0-47.0); HEMOGLOBIN 13.3 G/DL (12.0-16.0); LYMPHOCYTES % (AUTO) 47.3 % (20.0-45.0); MEAN CORPUSCULAR VOLUME 90 FL (80-99); MONOCYTES % (AUTO) 5.6 % (1.0-10.0); NEUTROPHILS % (AUTO) 46.9 % (45.0-75.0); PLATELET COUNT 176 K/UL (150-450); RED BLOOD COUNT 4.41 M/UL (4.20-5.40); RED CELL DISTRIBUTION WIDTH 12.2 % (11.6-14.8); WHITE BLOOD COUNT 9.7 K/UL (4.8-10.8)
--- NOTE | 2019-07-28 07:30 | NUR ---
HAND-OFF: Report given to MELISSA Patel. Round is done.
--- NOTE | 2019-07-28 07:35 | NUR ---
NURSE NOTES: WALKING ROUNDS DONE WITH OUTGOING RN. PATIENT AWAKE IN BED. QUESTIONS ANSWERED NEEDS MET. DISCUSSED PLAN OF CARE FOR THE DAY. VERBALIZED UNDERSTANDING. RUSSELL PATENT AND SECURED. HEAD TO TOE SKIN ASSESSMENT DONE, SKIN INTACT. BED INLOW AND LOCKED POSITION. CALL LIGHT WITHIN REACH.
[2019-07-28 08:00] VITALS: BP 134/73
--- NOTE | 2019-07-28 08:44 | Diagnostic Imaging Report ---
Indications: Altered mental status Technique: Spiral acquisitions obtained through the brain. Angled axial and coronal 5 x 5 mm slices were reconstructed. Total dose length product 1340.68 mGycm. CTDI vol(s) 70.38 mGy. Dose reduction achieved using automated exposure control Comparison: 03/14/2019 Findings: There is age-related enlargement of the ventricles and extra-axial CSF spaces. There is extensive periventricular deep white matter low-attenuation, consistent with chronic microvascular ischemic change. Old lacunar infarcts are seen in the bilateral basal ganglia. There is a left lentiform nucleus lacunar infarct which is nonacute but is new since prior study. No acute intracranial hemorrhage or edema. No mass effect nor midline shift. Otherwise normal espinoza-white differentiation. The calvarium is intact. The mastoids are probably clear. There is no significant interim change. Impression: Chronic age-related changes Negative for acute intracranial bleed or mass effect Old basal ganglia lacunar infarcts The CT scanner at [facility] is accredited by the [employer] and the scans are performed using protocols designed to limit radiation exposure to as low as reasonably achievable to attain images of sufficient resolution adequate for diagnostic evaluation.
--- NOTE | 2019-07-28 09:59 | General Progress Note ---
Assessment/Plan Assessment/Plan: S: not verbally communicative O: poor historian, seems comfortable PHYSICAL EXAMINATION:HEAD AND NECK: Atraumatic and normocephalic. CHEST: Clear to auscultation. HEART: S1, S2. Regular rate and rhythm. ABDOMEN: Soft. No organomegaly. MUSCULOSKELETAL: No gross lateralized motor deficits. However, this is a limited evaluation, musculoskeletal positive for spontaneous movement of all four extremities. Limited evaluation. Labs, meds: reviewed on Jul 28, and reconciled in the chart ASSESSMENT: 1. Acute encephalopathy. 2. Hypertension. 3. Renal failure-age indeterminate. 4. GI and DVT prophylaxis. 5. Hyperlipidemia. Plan: Will monitor Neuro check and mental status Subjective Allergies: Coded Allergies: No Known Allergies (Unverified , 03/12/19) Objective Last 24 Hour Vital Signs Date Time Temp Pulse Resp B/P (MAP) Pulse Ox O2 Delivery O2 Flow Rate FiO2 07/28/19 08:00 98.0 65 18 134/73 (93) 100 07/28/19 07:54 59 20 98 Room Air 21 07/28/19 04:45 97.7 69 20 130/80 (97) 99 07/28/19 00:00 97.6 72 20 130/80 (97) 99 07/27/19 21:00 Room Air 07/27/19 20:00 79 18 97 Room Air 21 07/27/19 20:00 97.9 78 20 110/70 (83) 99 07/27/19 16:00 98.1 64 16 142/65 (90) 98 07/27/19 12:00 97.9 80 17 131/71 (91) 98 Intake and Output 07/27/19 07/28/19 19:00 07:00 Intake Total 425 ml 900 ml Output Total 500 ml 650 ml Balance -75 ml 250 ml Intake Oral 50 ml IV Total 375 ml 900 ml Output Urine Total 500 ml 650 ml Laboratory Tests 07/27/19 14:19: Hemoglobin A1c 5.7, Pro-B-Type Natriuretic Peptide 116, Triglycerides Level 27L , Cholesterol Level 143, LDL Cholesterol 83, HDL Cholesterol 48, Cholesterol/ HDL Ratio 3.0L, Thyroid Stimulating Hormone (TSH) 0.250L 07/28/19 05:15: White Blood Count 9.7, Red Blood Count 4.41, Hemoglobin 13.3, Hematocrit 39.8, Mean Corpuscular Volume 90, Mean Corpuscular Hemoglobin 30.1, Mean Corpuscular Hemoglobin Concent 33.3, Red Cell Distribution Width 12.2, Platelet Count 176, Mean Platelet Volume 9.2, Neutrophils (%) (Auto) 46.9, Lymphocytes (%) (Auto) 47.3H, Monocytes (%) (Auto) 5.6, Eosinophils (%) (Auto) 0.0, Basophils (%) (Auto ) 0.2, Sodium Level 146H, Potassium Level 4.0, Chloride Level 113H, Carbon Dioxide Level 23, Anion Gap 10, Blood Urea Nitrogen 16, Creatinine 1.3, Estimat Glomerular Filtration Rate 41.3, Glucose Level 100, Uric Acid 5.7, Calcium Level 8.9, Phosphorus Level 3.5, Magnesium Level 1.8, Total Bilirubin 0.3, Aspartate Amino Transf (AST/SGOT) 12L, Alanine Aminotransferase (ALT/SGPT) 9L, Alkaline Phosphatase 50, Total Protein 6.3L, Albumin 3.0L, Globulin 3.3, Albumin /Globulin Ratio 0.9L Height (Feet): 4 Height (Inches): 11.00 Weight (Pounds): 200 Bill Rader MD Jul 28, 2019 09:58
[2019-07-28] MEDS: Docusate 100mg cap ORAL SCH ×3 (10:10→17:19)
--- NOTE | 2019-07-28 11:25 | Cardiology Report ---
APPROVED REPORT EXAM: Two-dimensional and M-mode echocardiogram with Doppler and color Doppler. INDICATION Tachycardia M-Mode DIMENSIONS IVSd1.3 (0.7-1.1cm)Left Atrium (MM)4.3 (1.6-4.0cm) LVDd5.1 (3.5-5.6cm)Aortic Root2.5 (2.0-3.7cm) PWd1.0 (0.7-1.1cm)Aortic Cusp Exc.1.7 (1.5-2.0cm) IVSs2.2 cm LVDs3.2 (2.5-4.0cm) PWs1.2 cm Normal left ventricular chamber size, systolic function and wall motion to extent visualized. Left ventricular ejection fraction estimated to be 60-65%. Mild left ventricular hypertrophy. No evidence of pericardial effusion. Mild left atrial enlargement. Right cardiac chamber sizes are within normal limits. Focal aortic valve sclerosis with adequate cusp excursion. Thickened mitral valve leaflets with normal excursion. Mitral annulus and aortic root calcification. Normal pulmonic valve structure. Normal tricuspid valve structure. IVC measured at 2.0 cm with slight physiologic collapse. A color flow and spectral Doppler study was performed and revealed: No aortic regurgitation. Mild mitral regurgitation. Mitral diastolic velocities suggest normal left ventricular diastolic function. Mild tricuspid regurgitation. Tricuspid systolic velocities suggests peak right ventricular systolic pressure of 32 mmHg. Mild pulmonic regurgitation present.
--- NOTE | 2019-07-28 11:38 | NUR ---
NURSE NOTES: PATIENT TOLERATED FULL LIQUID DIET. PATIENT DENIES NAUSEA, NO VOMIT PRESENT.
--- NOTE | 2019-07-28 11:57 | NUR ---
*-* NO INSURANCE INFORMATION IN THE BAR UNABLE TO SEND CLINICALS OR REVIEWS *-*
[2019-07-28 12:00] VITALS: BP 140/71
--- NOTE | 2019-07-28 12:48 | Nephrology Progress Note ---
Assessment/Plan Problem List: (1) Acute renal failure (2) Dehydration (3) Bronchospasm (4) Abdominal pain (5) History of hypertension Assessment Renal failure, acute vs chronic , Cr lower ? Dehydration left weakness , s/p CVA bronchospasm abd pain Plan advance diet as tolerated Hydrate- Avoid Nephrotoxics Monitor renal parameters pulm support Subjective ROS Limited/Unobtainable: No Constitutional: Reports: malaise Objective Objective Last 24 Hour Vital Signs Date Time Temp Pulse Resp B/P (MAP) Pulse Ox O2 Delivery O2 Flow Rate FiO2 07/28/19 12:00 98.4 69 18 140/71 (94) 99 07/28/19 09:00 Room Air 07/28/19 08:00 98.0 65 18 134/73 (93) 100 07/28/19 07:54 59 20 98 Room Air 21 07/28/19 04:45 97.7 69 20 130/80 (97) 99 07/28/19 00:00 97.6 72 20 130/80 (97) 99 07/27/19 21:00 Room Air 07/27/19 20:00 79 18 97 Room Air 21 07/27/19 20:00 97.9 78 20 110/70 (83) 99 07/27/19 16:00 98.1 64 16 142/65 (90) 98 Intake and Output 07/27/19 07/28/19 19:00 07:00 Intake Total 425 ml 900 ml Output Total 500 ml 650 ml Balance -75 ml 250 ml Intake Oral 50 ml IV Total 375 ml 900 ml Output Urine Total 500 ml 650 ml Laboratory Tests 07/27/19 14:19: Hemoglobin A1c 5.7, Pro-B-Type Natriuretic Peptide 116, Triglycerides Level 27L , Cholesterol Level 143, LDL Cholesterol 83, HDL Cholesterol 48, Cholesterol/ HDL Ratio 3.0L, Thyroid Stimulating Hormone (TSH) 0.250L 07/28/19 05:15: White Blood Count 9.7, Red Blood Count 4.41, Hemoglobin 13.3, Hematocrit 39.8, Mean Corpuscular Volume 90, Mean Corpuscular Hemoglobin 30.1, Mean Corpuscular Hemoglobin Concent 33.3, Red Cell Distribution Width 12.2, Platelet Count 176, Mean Platelet Volume 9.2, Neutrophils (%) (Auto) 46.9, Lymphocytes (%) (Auto) 47.3H, Monocytes (%) (Auto) 5.6, Eosinophils (%) (Auto) 0.0, Basophils (%) (Auto ) 0.2, Sodium Level 146H, Potassium Level 4.0, Chloride Level 113H, Carbon Dioxide Level 23, Anion Gap 10, Blood Urea Nitrogen 16, Creatinine 1.3, Estimat Glomerular Filtration Rate 41.3, Glucose Level 100, Uric Acid 5.7, Calcium Level 8.9, Phosphorus Level 3.5, Magnesium Level 1.8, Total Bilirubin 0.3, Aspartate Amino Transf (AST/SGOT) 12L, Alanine Aminotransferase (ALT/SGPT) 9L, Alkaline Phosphatase 50, Total Protein 6.3L, Albumin 3.0L, Globulin 3.3, Albumin /Globulin Ratio 0.9L Height (Feet): 4 Height (Inches): 11.00 Weight (Pounds): 200 General Appearance: no apparent distress Cardiovascular: normal rate Respiratory/Chest: decreased breath sounds Abdomen: soft Jayant Vang MD Jul 28, 2019 12:48
[2019-07-28 16:00] VITALS: BP 131/75
--- NOTE | 2019-07-28 17:18 | NUR ---
CASE MANAGEMENT: INITIAL REVIEW 63 YO F [facility]ABLE FROM [facility] CC: GEN WEAKNESS PMHx: HTN SI:SEPSIS. T 99 HR 121 RRR 16 B/P 142/96 SATS 97% ON RA BUN 20 CR 2 GLU 111 IS: NS BOLUS X2 DUO NEB HHN X1 TYLENOL REC X1 ALBUTEROL HHN X1 SOLU MEDROL IV X1 PATIENT ADMITTED TO MED/SURG 07/27/2019 @ 0510 DCP: PATIENT TO BE DISCHARGED TO HOME ONCE MEDICALLY CLEARED. 07/28/2019 SI:SEPSIS. T 98.3 HR 62 RR 18 B/P 131/75 SATS 99% ON RA NA 146 CL 113 AST 12 ALT 9 IS: IVF @ 75 mL/HR PROTONIX PO BID INSULIN ASPART SUBQ AC/HS MED/SURG STATUS DCP: PATIENT TO BE DISCHARGED TO HOME ONCE MEDICALLY CLEARED. Addendum: 07/29/19 at 0659 by Mulu Pepper CM INTERQUAL MET
--- NOTE | 2019-07-28 17:52 | NUR ---
NURSE NOTES: UNEVENTFUL DAY. PATIENT ABLE TO TURN SELF IN BED. CONTINUES TO TOLERATE FULL LIQUID DIET. NO N/V NOTED. BED IN LOW AND LOCKED POSITION. CALL LIGHT WITHIN REACH.
--- NOTE | 2019-07-28 19:13 | NUR ---
HAND-OFF: Report given to ABRAHAM CURIEL RN.
--- NOTE | 2019-07-28 19:30 | NUR ---
NURSE NOTES: Received report from MELISSA Patel. Patient awake and is verbally responsive to let her needs known. Breathing unlabored without distress, discomfort, or sob. Denies pain at this time. IV on right ac noted intact. Colvin intact draining urine. Bed placed at the lowest with alarm, brake, and siderails up for safety. Call light placed within reach. Will continue to monitor and provide care as ordered.
[2019-07-28 20:00] VITALS: BP 146/81
[2019-07-29] VITALS: BP 141/77
[2019-07-29 04:00] VITALS: BP 136/79
[2019-07-29] MEDS: D5 1/2NS 1,000 ML IV SCH (05:13)
[2019-07-29] MEDS: NovoLOG Insulin Flexpen SUBQ SCH ×3 (06:30→16:30)
--- NOTE | 2019-07-29 07:34 | NUR ---
NURSE NOTES: WALKING ROUNDS DONE WITH OUTGOING RN. PATIENT AWAKE IN BED HAVING BREAKFAST. TOLERATING FULL LIQUID. RUSSELL CATHETER PATENT AND SECURED TO THIGH.QUESTIONS ANSWERED, NEEDS MET. DISCUSSED PLAN OF CARE FOR THE DAY. VERBALIZED UNDERSTANDING. DENIES PAIN. BED IN LOW AND LOCKED POSITION.
--- NOTE | 2019-07-29 07:53 | NUR ---
HAND-OFF: Report given to MELISSA Patel.
[2019-07-29 08:00] VITALS: BP 149/74
[2019-07-29] MEDS: Docusate 100mg cap ORAL SCH ×3 (08:52→16:53)
--- NOTE | 2019-07-29 09:00 | NUR ---
PT EVALUATION NOTE Patient seen for initial evaluation, see complete evaluation for details. Patient presents with generalized weakness, LLE pain, decreased safety awareness and impaired balance which affects patient's ability to perform mobility tasks. Patient requires min assist for bed mobility, transfers and ambulation with FWW. Patient will benefit from skilled inpatient PT intervention to address strength, balance, safety and functional mobility. [facility]tic[facility]ate [facility] once medically cleared by MD. Addendum: 07/29/19 at 1233 by JESSIE MALDONADO PT Amended: Links added.
--- NOTE | 2019-07-29 09:28 | Nephrology Progress Note ---
Assessment/Plan Problem List: (1) Acute renal failure (2) Dehydration (3) Bronchospasm (4) Abdominal pain (5) History of hypertension Assessment Renal failure, acute vs chronic , Cr lower ? Dehydration left weakness , s/p CVA bronchospasm abd pain Plan advance diet as tolerated recheck labs in am Hydrate- Avoid Nephrotoxics Monitor renal parameters pulm support Subjective ROS Limited/Unobtainable: No Objective Objective Last 24 Hour Vital Signs Date Time Temp Pulse Resp B/P (MAP) Pulse Ox O2 Delivery O2 Flow Rate FiO2 07/29/19 08:00 97.6 20 149/74 (99) 99 07/29/19 04:00 98.6 57 17 136/79 (98) 96 07/29/19 00:00 98.5 54 18 141/77 (98) 97 07/28/19 21:11 63 20 98 Room Air 21 07/28/19 21:00 Room Air 07/28/19 20:00 98.4 56 16 146/81 (102) 98 07/28/19 16:00 98.7 62 18 131/75 (93) 99 07/28/19 14:22 98.4 07/28/19 12:00 98.4 69 18 140/71 (94) 99 Intake and Output 07/28/19 07/29/19 18:59 06:59 Intake Total 1185 ml 825 ml Output Total 1100 ml 1650 ml Balance 85 ml -825 ml Intake Oral 360 ml IV Total 825 ml 825 ml Output Urine Total 1100 ml 1650 ml # Voids 1 # Bowel Movements 3 Height (Feet): 4 Height (Inches): 11.00 Weight (Pounds): 200 General Appearance: no apparent distress Objective no change Jayant Vang MD Jul 29, 2019 09:28
--- NOTE | 2019-07-29 10:12 | NUR ---
*-* INSURANCE *-* ALL CLINICALS AND REVIEWS HAVE BEEN FAXED TO: JAIME MARTINEZ:SUJEY P: [phone] F: [phone] REF# [id number] DISCHARGE PLANNING NEEDS F: [phone]
--- NOTE | 2019-07-29 10:38 | NUR ---
CASE MANAGEMENT: REVIEW 07/29/2019 SI:SEPSIS. T 98.6 HR 57 RR 17 B/P 136/79 SATS 96% ON RA NO LABS TODAY IS: IVF @ 75 mL/HR PROTONIX PO BID INSULIN ASPART SUBQ AC/HS MED/SURG STATUS DCP: PATIENT TO BE DISCHARGED TO HOME ONCE MEDICALLY CLEARED.
[2019-07-29 12:00] VITALS: BP 148/81
--- NOTE | 2019-07-29 12:15 | NUR ---
DISCHARGE PLANNING: NOTE PENDING DC L[facility] ON WILL CALL TREVOR AT [facility] MADE AWARE. SHE AGREEABLE T: [phone]
--- NOTE | 2019-07-29 12:32 | General Progress Note ---
Assessment/Plan Assessment/Plan: S: verbally communicative now O: poor historian, seems comfortable, Cunningham in place PHYSICAL EXAMINATION:HEAD AND NECK: Atraumatic and normocephalic. CHEST: Clear to auscultation. HEART: S1, S2. Regular rate and rhythm. ABDOMEN: Soft. No organomegaly. MUSCULOSKELETAL: No gross lateralized motor deficits. However, this is a limited evaluation, musculoskeletal positive for spontaneous movement of all four extremities. Limited evaluation. Labs, meds: reviewed on Jul 28, and reconciled in the chart ASSESSMENT: 1. Acute encephalopathy. 2. Hypertension. 3. Renal failure-age indeterminate. 4. GI and DVT prophylaxis. 5. Hyperlipidemia. Plan: Will monitor Neuro check and mental status DC cunningham PT consult Subjective Allergies: Coded Allergies: No Known Allergies (Unverified , 03/12/19) Objective Last 24 Hour Vital Signs Date Time Temp Pulse Resp B/P (MAP) Pulse Ox O2 Delivery O2 Flow Rate FiO2 07/29/19 12:00 98.1 59 18 148/81 (103) 99 07/29/19 10:05 61 18 98 Room Air 21 07/29/19 09:00 Room Air 07/29/19 08:00 97.6 20 149/74 (99) 99 07/29/19 04:00 98.6 57 17 136/79 (98) 96 07/29/19 00:00 98.5 54 18 141/77 (98) 97 07/28/19 21:11 63 20 98 Room Air 21 07/28/19 21:00 Room Air 07/28/19 20:00 98.4 56 16 146/81 (102) 98 07/28/19 16:00 98.7 62 18 131/75 (93) 99 07/28/19 14:22 98.4 Intake and Output 07/28/19 07/29/19 19:00 07:00 Intake Total 1185 ml 825 ml Output Total 1100 ml 1650 ml Balance 85 ml -825 ml Intake Oral 360 ml IV Total 825 ml 825 ml Output Urine Total 1100 ml 1650 ml # Voids 1 # Bowel Movements 3 Laboratory Tests 07/29/19 10:20: C-Reactive Protein, Quantitative < 0.4 Height (Feet): 4 Height (Inches): 11.00 Weight (Pounds): 200 Bill Rader MD Jul 29, 2019 12:32
--- NOTE | 2019-07-29 13:00 | NUR ---
NURSE NOTES: RUSSELL CATHETER DC'D PER MD ORDER. PATIENT INCONTINENT OF B/B.
[2019-07-29] MEDS ORDERED: D5 1/2NS 1000ml IV ONE (14:28)
[2019-07-29] MEDS ORDERED: Tubing IV Secondary IV ONE (14:28)
--- NOTE | 2019-07-29 15:50 | NUR ---
NURSE NOTES: DISCHARGE ORDER RECEIVED FROM DR. FIGUEROA TO RETURN TO [facility] PATIENT AWARE. CM NOTIFIED TREVOR AT FACILITY.
[2019-07-29 16:00] VITALS: BP 157/86
--- NOTE | 2019-07-29 18:09 | NUR ---
NURSE NOTES: PATIENT DISCHARGED TO [facility] VIA AMBULANCE PERSONNEL. REPORT GIVEN TO PERSONNEL. BELONGINGS CHECKED AND GIVEN TO PATIENT.
--- NOTE | 2019-07-30 11:57 | Discharge Summary ---
Discharge Summary Discharge Summary _ DATE OF ADMISSION: 07/27/2019 DATE OF DISCHARGE: 07/29/2019 DISCHARGED BY: Dr. Rader REASON FOR ADMISSION: 63 years old female with past medical history of hypertension, CVA with left- sided weakness, UTI in the past, [facility] due to altered mentation and weakness. Upon evaluation patient was tachycardic with heart rate 121. Rest of the vital signs were stable. Laboratory work-up revealed no leukocytosis, hemoglobin 16.6, hematocrit 49.3. BUN 20, creatinine 2.0, stable electrolytes. Glucose 111. Lactic acid 1.3. Patient was wheezing on examination . Pro BNP 76. Troponin 0.015. EKG revealed sinus tachycardia , no acute ischemic changes. Stable LFT and lipase. Urinalysis revealed +2 ketones , but no evidence of urinary tract infection. Chest x-ray showed no acute cardiopulmonary pathology. Patient received fluid bolus and breathing treatment with bronchodilator. Patient admitted for further management. CONSULTANTS: communication equipment repairer Dr. Vang HOSPITAL COURSE: Patient admitted to medical surgical floor. Patient started on the gentle hydration. Cumulative Effects Analyst closely followed. Renal parameters and electrolytes were closely monitored. Electrolytes corrected as needed , and nephrotoxins were avoided. Prior to discharge BUN down to 16 and creatinine down to 1.3. Acute renal failure resolved. Abdominal ultrasound revealed right renal cortical scarring , likely from old infection. No stones, no hydronephrosis. Echocardiogram revealed preserved ejection fraction of 60 to 65% with mild left ventricular hypertrophy. No evidence of pericardial effusion. No evidence of wall motion abnormality. Right ventricular systolic pressure of 32. CT of the head revealed chronic age-related changes , but showed no acute intracranial bleeding or mass-effect. Old basal ganglia lacunar infarcts noted. Lipid panel was stable. Mental status was closely monitored. Neuro-checks were implemented. Supplemental oxygen was on board as needed to keep pulse oximetry above 92%. Breathing treatment with bronchodilator provided as needed. Bronchospasm resolved, no further wheezing. Blood cultures were negative. Patient remained afebrile , no leukocytosis GI prophylaxis provided. Pain management was addressed as needed. Bowel regimen instituted. Patient clinically stabilized . Mental status improved . No further wheezing. Patient was working with physical therapist, Patient was stable for [facility] to [facility] for [facility] of care . FINAL DIAGNOSES: Renal failure , acute on chronic Acute encephalopathy Probably dehydration History of CVA with left-sided weakness Bronchospasm Hypertension Abdominal pain DISCHARGE MEDICATIONS: See Medication Reconciliation list. DISCHARGE INSTRUCTIONS: [facility]. Follow up with medical doctor at the facility.. I have been assigned to dictate discharge summary for this account. I was not involved in the patient's management. Lana Duran NP Jul 30, 2019 11:57
--- NOTE | 2019-07-30 13:13 | NUR ---
*-* INSURANCE *-* UPDATED CLINICALS AND REVIEWS HAVE BEEN FAXED TO: JAIME MARTINEZ:SUJEY P: [phone] F: [phone] REF# [id number] DISCHARGE PLANNING NEEDS F: [phone]
== END 2019-07-29 18:10 | DRG 469 ==
LOC: EDBD 23:54 → EDUNIT# 23:54 → EMR 07-27 00:03 → OBSVTOIN 07-27 04:16 → 3E 07-27 04:16 → EDBEDREQ 07-27 04:25 → EDBEDREQSVC 07-27 04:27 → EDBEDREQ 07-27 04:37
DX: N17.9 Acute kidney failure, unspecified (principal); I69.954 Hemiplegia and hemiparesis following unspecified cerebrovascular disease affecting left non-dominant side; G93.40 Encephalopathy, unspecified; E78.5 Hyperlipidemia, unspecified; I69.354 Hemiplegia and hemiparesis following cerebral infarction affecting left non-dominant side; I12.9 Hypertensive chronic kidney disease with stage 1 through stage 4 chronic kidney disease, or unspecified chronic kidney disease; N18.9 Chronic kidney disease, unspecified; E86.0 Dehydration; J98.01 Acute bronchospasm; R10.9 Unspecified abdominal pain
CPT/HCPCS: 36415; 70450; 71045; 76700; 80053; 80061; 81003; 82550; 82570; 82962; 83036; 83605; 83690; 83735; 83880; 84100; 84300; 84443; 84484; 84550; 85025; 85610; 85730; 86140; 87040; 87081; 93005; 93306; 94640; 94664; 96360; 96361; 96365; 96366; 96374; 99285; J1815; J7620